=== PATIENT | male | born 1940 | race Caucasian/White ===

== ENCOUNTER 2016-05-23 10:47 | Emergency (ER) | payer MEDICARE ==
[2016-04-22 13:19] VITALS: BMI 26.2
[~2016-05-23 10:47] MED LIST: BACTRIM DS TABL1 TAB PO; BAYER CHEWABLE81 MG PO; CLEOCIN HCL150 MG PO; FLOMAX0.4 MG PO; GABAPENTIN100 MG PO; GLUCOPHAGE1000 MG PO; GLUCOPHAGE500 MG PO; HYDROCHLOROTH12.5 M1 PO; HYDROCODONE-APA1 TAB PO; IPRAT-ALBUT 0.5-3 ML UPD; KEFLEX500 MG PO; LANTUS SOL100 UNIT/1 SC; LISINOPRIL10 MG PO; MONODOX100 MG PO; MULTIPLE VITAMI1 TA1; MULTIPLE VITAMI1 TA1 PO; NEURONTIN 300300 MG PO; PLAVIX75 MG PO; PRAVACHOL20 MG PO
[2016-05-23 12:00] LABS: BASOPHILS 0.1 % (0.0-2.0); EOSINOPHILS 1.4 % (0-7); HEMATOCRIT 35.6 % (42.0-54.0); HEMOGLOBIN 11.8 g/dL (13.5-17.5); IMMATURE GRANULOCYTES 0.5 % (0-5); LYMPHOCYTES 8.2 % (15-50); MCH 30.3 pg (26.0-34.0); MCHC 33.1 g/dL (31.0-37.0); MCV 91.5 fL (80.0-100.0); MEAN PLATELET VOLUME 10.3 fL (7.4-10.4); MONOCYTES 6.8 % (2-11); RBC 3.89 10x6/uL (4.20-6.10); WBC 9.4 10x3/uL (4.8-10.8)
[2016-05-23 12:01] LABS: PLATELET COUNT 159 10x3/uL (130-400)
== END 2016-05-23 12:32 | disposition home or self-care (01) ==
LOC: D.ER 10:47
PROVIDERS: Nurse Practitioner Acute Care
DX: L03.116 Cellulitis of left lower limb (principal); I73.9 Peripheral vascular disease, unspecified; E11.9 Type 2 diabetes mellitus without complications

== ENCOUNTER 2016-05-25 11:48 | Inpatient (IN) | payer MEDICARE ==
[~2016-05-25] VITALS: Ht 177.8 cm; Wt 74.7 kg
[2016-05-25 12:08] VITALS: BP 97/58; BMI 26.4
--- NOTE | 2016-05-25 12:22 | NUR ---
ARRIVED FROM OFFICE. IV STARTED BY MELIDA ELIZONDO. 22 GA X1 ATTEMPT. MONITOR SHOWS [address] ST. WHEEZING ON INSPIRATORY AND EXPIRATORY ASHLEY LUNGS. 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
[2016-05-25 13:17] VITALS: BP 97/59
--- NOTE | 2016-05-25 13:30 | NUR ---
SCD BROUGHT TO PT AND EXPLAINED THE PURPOSE BUT PATIENT REFUSES.
[2016-05-25 14:08] LABS: BASOPHILS 0.5 % (0.0-2.0); EOSINOPHILS 2.7 % (0-7); HEMATOCRIT 34.6 % (42.0-54.0); HEMOGLOBIN 11.4 g/dL (13.5-17.5); IMMATURE GRANULOCYTES 0.7 % (0-5); MCH 30.6 pg (26.0-34.0); MCHC 32.9 g/dL (31.0-37.0); MCV 92.8 fL (80.0-100.0); MEAN PLATELET VOLUME 10.5 fL (7.4-10.4); MONOCYTES 8.1 % (2-11); PLATELET COUNT 188 10x3/uL (130-400); RBC 3.73 10x6/uL (4.20-6.10); RDW 14.3 % (11.5-14.5); WBC 8.7 10x3/uL (4.8-10.8)
--- NOTE | 2016-05-25 14:31 | NUR ---
WITHOUT CHANGES OR DISTRESS NOTED AT THIS TIME.
[2016-05-25 14:44] LABS: ALBUMIN 2.9 g/dL (3.4-5.0); ANION GAP 14.1 mmol/L (8-16); BILIRUBIN - TOTAL 0.45 mg/dL (0.2-1.3); CALCIUM 8.9 mg/dL (8.5-10.1); CARBON DIOXIDE 28.6 mmol/L (21.0-32.0); CREATININE - SERUM 1.7 mg/dL (0.6-1.3); POTASSIUM - SERUM 4.7 mmol/L (3.5-5.1); PROTEIN - SERUM 6.8 g/dL (6.4-8.2)
[2016-05-25 15:13] LABS: CKMB 0.8 U/L (0.0-3.6); CREATINE KINASE 63 UL (21-232); TROPONIN-I 0.025 ng/mL (0.000-0.060)
[2016-05-25 16:27] VITALS: BP 108/68
[2016-05-25 19:30] LABS: CKMB 1.6 U/L (0.0-3.6); CREATINE KINASE 147 UL (21-232); TROPONIN-I 0.026 ng/mL (0.000-0.060)
[2016-05-25 20:02] VITALS: BP 94/64
--- NOTE | 2016-05-25 23:15 | NUR ---
PT RECIVING CODORONE DRIP AND STARTED TO C/O NAUSEA AND " NOT FEELING RIGHT" DR BARAJAS CALLED AND NOTIFIED AND ORDERS RECIVED TO STOP DRIP AND ORDER FOR ZOFRAN 4MG IVP PRN FOR NAUSEA. HR 82 SR ON TELEMETRY AND BP 143/113 AT THIS TIME.
[2016-05-26] VITALS: BP 105/86
--- NOTE | 2016-05-26 01:30 | NUR ---
PT LAYING IN BED NO DISTRESS OBSERVED EYES CLOSED AND PT APPERS TO BE SLEEPING RESPERATIONS EVEN AND UNLABORED ON 2LNC WILL MONITOR
[2016-05-26 02:00] LABS: CKMB 0.9 U/L (0.0-3.6); CREATINE KINASE 71 UL (21-232); TROPONIN-I 0.036 ng/mL (0.000-0.060)
[2016-05-26 04:19] VITALS: BP 86/51
--- NOTE | 2016-05-26 04:19 | NUR ---
ALEC ARRIAGA NOTIFIED ME THAT PT BP LOW 72 SYSTOLIC MANUAL TAKEN AND READING 78/56 BOLUS 500 NS AND MONITORED BP Q15MIN READINGS ARE FOLLOWED 86/51 AT 0425 PT DENIES ANY LIGHT HEADEDNESS OR DIZZINESS WILL MONITOR BP AND PT
--- NOTE | 2016-05-26 05:20 | NUR ---
PT BP READING 83/52 BOLUS COMPLETED AND FLUIDS INFUSING AT A RATE OF 150ML/HR AND PT DENIES ANY DISCOMFORT WILL MONITOR
[2016-05-26 06:05] LABS: BASOPHILS 0.2 % (0.0-2.0); EOSINOPHILS 0.3 % (0-7); HEMATOCRIT 34.3 % (42.0-54.0); LYMPHOCYTES 12.5 % (15-50); MCH 29.6 pg (26.0-34.0); MCHC 32.1 g/dL (31.0-37.0); MCV 92.5 fL (80.0-100.0); MEAN PLATELET VOLUME 10.6 fL (7.4-10.4); MONOCYTES 7.9 % (2-11); NEUTROPHILS 78.1 % (40-80); PLATELET COUNT 183 10x3/uL (130-400); RBC 3.71 10x6/uL (4.20-6.10); RDW 14.3 % (11.5-14.5); WBC 8.8 10x3/uL (4.8-10.8)
[2016-05-26 06:39] LABS: BILIRUBIN - TOTAL 0.41 mg/dL (0.2-1.3); CALCIUM 8.6 mg/dL (8.5-10.1); CARBON DIOXIDE 24.5 mmol/L (21.0-32.0); PROTEIN - SERUM 6.9 g/dL (6.4-8.2)
[2016-05-26 06:42] LABS: CREATININE - SERUM 2.6 mg/dL (0.6-1.3); POTASSIUM - SERUM 5.5 mmol/L (3.5-5.1)
--- NOTE | 2016-05-26 07:30 | NUR ---
RESTING IN BED EYES CLOSED RESP UNLABORED NAD NOTED
[2016-05-26 08:07] VITALS: BP 92/63
[2016-05-26 11:36] VITALS: BP 83/43
--- NOTE | 2016-05-26 12:39 | NUR ---
RATIONALE FOR SCD'S EXPLAINED. REFUSED SCD'S
[2016-05-26 12:42] LABS: ANION GAP 17.6 mmol/L (8-16); CALCIUM 8.7 mg/dL (8.5-10.1); CARBON DIOXIDE 24.1 mmol/L (21.0-32.0); CREATININE - SERUM 3.1 mg/dL (0.6-1.3); POTASSIUM - SERUM 5.7 mmol/L (3.5-5.1)
[2016-05-26 14:20] VITALS: Ht 177.8 cm; Wt 74.7 kg
--- NOTE | 2016-05-26 15:04 | NUR ---
LAB RESULTS CALLED TO DR VERONICA RESULTS GIVEN TO HIS NURSE ANTON
[2016-05-26 15:54] VITALS: BP 97/64
--- NOTE | 2016-05-26 18:20 | NUR ---
CALLED TO PT ROOM PT SITTING IN FLOOR CT STAFF AND PT STATES PT HAD SLIPP IN FLOOR DURING TRANSFER NO INJURIES NOTED VS T97.5, R 28, P 104, B/P 109/66
--- NOTE | 2016-05-26 19:00 | NUR ---
REPORTED FALL WITH NO INJURIES TO DR VERONICA AT THIS TIME
--- NOTE | 2016-05-26 20:01 | NUR ---
RESUMED CARE OF PT, LYING IN BED RESPIRATIONS EVEN AND UNLABORED ON 2LPM VIA NC. LEFT HAND INFUSING BUMEX @ 5 AND DOBUTAMINE @ 12.9 (5MCG/KG/MIN). PLAN OF CARE DISCUSSED, CALL LIGHT IN REACH. WILL CONTINUE TO MONITOR. SEE NURSE ASSESMSENT.
[2016-05-26 20:56] VITALS: BP 129/76
--- NOTE | 2016-05-26 23:02 | NUR ---
22 GAUGE TO RIGHT FOREARM X 3 STICKS. ANTIBIOTICS INFUSING.
[2016-05-27 00:36] VITALS: BP 97/60
--- NOTE | 2016-05-27 02:20 | NUR ---
IV TO LEFT HAND REMOVED BY WHEELCHAIR, TIP INTACT. SWITCHED DRIPS OVER TO RIGHT FOREARM. WILL CONTINUE TO MONITOR.
--- NOTE | 2016-05-27 04:01 | NUR ---
FARM CROPS TEACHER AT BEDSIDE TO OBTAIN VITALS, CALL LIGHT IN REACH. WILL CONTINUE TO MONITOR.
[2016-05-27 04:57] VITALS: BP 98/40
[2016-05-27 05:02] LABS: BASOPHILS 0.2 % (0.0-2.0); HEMATOCRIT 35.3 % (42.0-54.0); HEMOGLOBIN 11.5 g/dL (13.5-17.5); IMMATURE GRANULOCYTES 1.1 % (0-5); LYMPHOCYTES 13.4 % (15-50); MCHC 32.6 g/dL (31.0-37.0); MCV 92.2 fL (80.0-100.0); MEAN PLATELET VOLUME 10.7 fL (7.4-10.4); MONOCYTES 8.6 % (2-11); NEUTROPHILS 75.7 % (40-80); PLATELET COUNT 181 10x3/uL (130-400); RBC 3.83 10x6/uL (4.20-6.10); RDW 14.3 % (11.5-14.5); WBC 10.3 10x3/uL (4.8-10.8)
[2016-05-27 05:44] LABS: ALBUMIN 3.2 g/dL (3.4-5.0); BILIRUBIN - TOTAL 0.47 mg/dL (0.2-1.3); CALCIUM 8.7 mg/dL (8.5-10.1); CARBON DIOXIDE 26.4 mmol/L (21.0-32.0); CREATININE - SERUM 2.8 mg/dL (0.6-1.3); PROTEIN - SERUM 7.3 g/dL (6.4-8.2)
[2016-05-27 05:45] LABS: ANION GAP 15.2 mmol/L (8-16); POTASSIUM - SERUM 4.6 mmol/L (3.5-5.1)
[2016-05-27 06:34] LABS: CREATININE - URINE 50.6 mg/dL (30-125); PRO/CRE RATIO URINE 0.3 mg/g; PROTEIN - URINE 16.2 mg/dL (0.0-11.9)
--- NOTE | 2016-05-27 06:40 | NUR ---
URINE SAMPLES OBTAINED, NO CHANGES FROM PREVIOUS ASSESSMENT.
--- NOTE | 2016-05-27 07:15 | NUR ---
RESTING QUIETLY DRINKING COFFEE NAD NOTED DENIES ANY NEEDS OR DISCOMFORT
[2016-05-27 08:00] VITALS: BP 97/59
[2016-05-27 11:54] VITALS: BP 109/73
[2016-05-27 12:26] LABS: APPEARANCE CLEAR (CLEAR); BACTERIA FEW /hpf (NONE SEEN); BILIRUBIN NEGATIVE (NEGATIVE); COLOR YELLOW (YELLOW); EPITHELIAL CELLS 0-5 /hpf (0-5); GLUCOSE NEGATIVE (NEGATIVE); HYALINE CAST 0-5 /lpf (NONE SEEN); KETONE NEGATIVE (NEGATIVE); LEUKOCYTE ESTERASE 2+ (NEGATIVE); MUCUS <1+ /lpf (NONE SEEN); NITRITE NEGATIVE (NEGATIVE); PROTEIN NEGATIVE (NEGATIVE); SPECIFIC GRAVITY 1.015 (1.005-1.020); UROBILINOGEN NORMAL (NORMAL)
[2016-05-27 12:27] LABS: WAXY CAST RARE /lpf (NONE SEEN)
[2016-05-27 15:49] VITALS: BP 108/59
--- NOTE | 2016-05-27 19:00 | NUR ---
RECEIVED REPORT AND ASSUMED PT CARE FROM DAY SHIFT NURSE @ THIS TIME.
[2016-05-27 22:37] VITALS: BP 129/72
[2016-05-28 01:38] VITALS: BP 94/44
--- NOTE | 2016-05-28 01:45 | NUR ---
PT RESTING SOUNDLY WITHOUT C/O OR DISTRESS NOTED. CALL LIGHT WITHIN REACH. WILL CONT TO MONITOR.
[2016-05-28 05:23] LABS: BASOPHILS 0.3 % (0.0-2.0); EOSINOPHILS 2.3 % (0-7); HEMATOCRIT 35.6 % (42.0-54.0); HEMOGLOBIN 11.4 g/dL (13.5-17.5); IMMATURE GRANULOCYTES 1.5 % (0-5); LYMPHOCYTES 11.1 % (15-50); MCH 29.8 pg (26.0-34.0); MCV 93.2 fL (80.0-100.0); MEAN PLATELET VOLUME 10.7 fL (7.4-10.4); NEUTROPHILS 74.8 % (40-80); PLATELET COUNT 197 10x3/uL (130-400); RBC 3.82 10x6/uL (4.20-6.10); RDW 14.4 % (11.5-14.5); WBC 9.3 10x3/uL (4.8-10.8)
--- NOTE | 2016-05-28 05:30 | NUR ---
PT RIGHT FOREARM IV INFILTRATED. REMOVED WITH CATH INTACT. DRESSIGN APPLIED. RESITED TO RIGHT FOREARM C/ 20 GA ANGIOCATH X2 STICKS. PT JENNIFFER WELL. WILL CONT TO MONITOR.
[2016-05-28 05:41] LABS: ALBUMIN 3.2 g/dL (3.4-5.0); BILIRUBIN - DIRECT 0.15 mg/dL (0.00-0.30); BILIRUBIN - TOTAL 0.6 mg/dL (0.2-1.3); CALCIUM 9.3 mg/dL (8.5-10.1); CARBON DIOXIDE 32.8 mmol/L (21.0-32.0); CREATININE - SERUM 2.5 mg/dL (0.6-1.3); PROTEIN - SERUM 7.5 g/dL (6.4-8.2)
[2016-05-28 05:42] LABS: ANION GAP 10.1 mmol/L (8-16); POTASSIUM - SERUM 3.9 mmol/L (3.5-5.1)
[2016-05-28 05:55] VITALS: BP 112/54
[2016-05-28 07:49] VITALS: BP 110/59
--- NOTE | 2016-05-28 09:42 | NUR ---
RESP UL ON 02 2L NC. IV PATENT. TELEMETRY SR. WILL CONT. PLAN OF CARE.
[2016-05-28 11:47] VITALS: BP 108/63
[2016-05-28 15:54] VITALS: BP 110/58
--- NOTE | 2016-05-28 20:18 | NUR ---
BEDSIDE REPORT COMPLETED LINENS CHANGED ON PT BED PT SITTING UP IN WHEELCHAIR AT BEDSIDE NO DISTRESS OBSERVED PT ON 2LNC AND TELEMETRY READING SR IV FLUIDS INFUSING ORDERED. CALL GAGANDEEP ZUÑIGA SRX2 BED LOW AND LOCKED WILL MONITOR
[2016-05-28 20:37] VITALS: BP 108/62
--- NOTE | 2016-05-28 22:27 | NUR ---
PT ASSESSMENT COMPLETED NO DISTRESS OBSERVED CALL LIGHTIN REACH SRX2 BED LOW AND LOCKED. RESPERATIONS EVEN AND UNLABORED ON 2LNC WILL MONITOR
[2016-05-29 00:17] VITALS: BP 105/54
[2016-05-29 04:29] VITALS: BP 104/48
[2016-05-29 05:07] LABS: BASOPHILS 0.4 % (0.0-2.0); EOSINOPHILS 3.5 % (0-7); HEMATOCRIT 37.2 % (42.0-54.0); IMMATURE GRANULOCYTES 1.1 % (0-5); LYMPHOCYTES 18.9 % (15-50); MCH 29.8 pg (26.0-34.0); MCHC 32.3 g/dL (31.0-37.0); MCV 92.3 fL (80.0-100.0); MONOCYTES 9.8 % (2-11); NEUTROPHILS 66.3 % (40-80); PLATELET COUNT 212 10x3/uL (130-400); RBC 4.03 10x6/uL (4.20-6.10); RDW 14.4 % (11.5-14.5); WBC 8.1 10x3/uL (4.8-10.8)
[2016-05-29 05:32] LABS: ALBUMIN 3.3 g/dL (3.4-5.0); BILIRUBIN - TOTAL 0.8 mg/dL (0.2-1.3); CALCIUM 9.8 mg/dL (8.5-10.1); CARBON DIOXIDE 35.4 mmol/L (21.0-32.0); CREATININE - SERUM 1.9 mg/dL (0.6-1.3); POTASSIUM - SERUM 3.4 mmol/L (3.5-5.1); PROTEIN - SERUM 7.8 g/dL (6.4-8.2)
[2016-05-29 07:55] VITALS: BP 90/54
--- NOTE | 2016-05-29 09:33 | NUR ---
RESP UL ON 2L NC. IV PATENT. CALL LIGHT IN REACH. WILL CONT. PLAN OF CARE.
[2016-05-29 12:00] VITALS: BP 107/64
[2016-05-29 16:00] VITALS: BP 97/57
--- NOTE | 2016-05-29 19:16 | NUR ---
BEDSIDE SHIFT REPORT COMPLETED PT LAYING IN BED EYES CLOSED PT APPERS TO BE SLEEPING AT THIS TIME CALL LIGHT IN REACH SRX2 BED LOW AND LOCKED IVP SALINE LOCKED AND NO DISTRESS OBSERVED WILL MONITOR
[2016-05-29 20:00] VITALS: BP 109/70
--- NOTE | 2016-05-29 21:57 | NUR ---
PT UP IN WHEELCHAIR AROUND UNIT NO DISTRESS OBSERVED WILL MONITOR
[2016-05-30] VITALS: BP 100/61
[2016-05-30 04:00] VITALS: BP 102/64
[2016-05-30 05:40] LABS: BASOPHILS 0.3 % (0.0-2.0); EOSINOPHILS 4.3 % (0-7); HEMATOCRIT 39.9 % (42.0-54.0); HEMOGLOBIN 12.7 g/dL (13.5-17.5); IMMATURE GRANULOCYTES 1.6 % (0-5); LYMPHOCYTES 22.9 % (15-50); MCH 29.8 pg (26.0-34.0); MCHC 31.8 g/dL (31.0-37.0); MCV 93.7 fL (80.0-100.0); MEAN PLATELET VOLUME 9.9 fL (7.4-10.4); MONOCYTES 11.1 % (2-11); NEUTROPHILS 59.8 % (40-80); PLATELET COUNT 238 10x3/uL (130-400); RBC 4.26 10x6/uL (4.20-6.10); RDW 14.3 % (11.5-14.5); WBC 7.5 10x3/uL (4.8-10.8)
[2016-05-30 06:45] LABS: ALBUMIN 3.2 g/dL (3.4-5.0); ANION GAP 11.3 mmol/L (8-16); BILIRUBIN - TOTAL 0.6 mg/dL (0.2-1.3); CALCIUM 9.3 mg/dL (8.5-10.1); CARBON DIOXIDE 38.6 mmol/L (21.0-32.0); POTASSIUM - SERUM 3.9 mmol/L (3.5-5.1)
--- NOTE | 2016-05-30 07:10 | NUR ---
UP IN W/C DENIES ANY NEEDS OR DISCOMFORT
[2016-05-30 07:55] LABS: ERYTHROCYTE SEDIMENTATION RATE 44 mm/hr (0-20)
[2016-05-30 08:00] VITALS: BP 95/56
--- NOTE | 2016-05-30 11:43 | NUR ---
Rehab Note- Prescreen Order received. The patient has [employer] & requires a PreAuth prior to IRF stay. Will need a PT & OT eval prior to PreAuth process started. Thank you for this referral! Carol Ann Pastrana RN Clinical Liaison, Rehab Care/[facility]
[2016-05-30 12:00] VITALS: BP 119/62
--- NOTE | 2016-05-30 14:32 | NUR ---
Patient Name: JADYN SIMMONS Admission Status: Elective Accout number: [id number] Admission Date: 05-26-2016 : 1940 Admission Diagnosis:SHORTNESS OF BREATH Attending: SHAUNA Current LOS: 4 Anticipated DC Date: Planned Disposition: Home with Home Health Primary Insurance: [facility] PLANNED EXTERNAL PROVIDER: [facility] Discharge Planning Comments: * Is the patient Alert and Oriented? Yes 0 * How many steps to enter\exit or inside your home? NONE 0 * PCP DR. VERONICA 0 * Pharmacy [facility] 0 * Preadmission Environment Home Alone 0 * ADLs Independent 0 * Equipment Cane Walker Wheelchair 0 * Other Equipment NO MEDICAL EQUIPMENT PROVIDER PREFERENCE 0 * List name and contact numbers for known caregivers / representatives who currently or will assist patient after discharge: RASHID AL, BROTHER, 0 * Community resources currently utilized Home Health 0 * Please name any agencies selected above. [facility] 0 * Additional services required to return to the preadmission environment? No 0 * Can the patient safely return to the preadmission environment? Yes 0 * Has this patient been hospitalized within the prior 30 days at any hospital? Yes 0 CM MET WITH PT AND BROTHER IN ROOM TO DISCUSS DISCHARGE PLANNING AND NEEDS. PT REPORTS LIVING AT HOME INDEPENDENTLY AND ALONE. PT HAS A CANE, WALKER AND WHEELCHAIR WITH NO MEDICAL EQUIPMENT PROVIDER PREFERENCE. PT HAS HOME HEALTH WITH [facility]. CM DISCUSSED AVAILABILITY OF HOME HEALTH, REHAB SERVICES AND MEDICAL EQUIPMENT. PT PLANS TO RETURN HOME AND WANTS HOME HEALTH RESUMED AT DISCHARGE. PT REPORTS HIS BROTHER WILL PICK HIM UP FOR DISCHARGE HOME. IMPORTANT MESSAGE FROM MEDICARE PROVIDED AND EXPLAINED. FOR DISCHARGE, NOTIFY [facility] OF DISCHARGE AT [phone], FAX DISCHARGE INFORMATION TO [facility] AT [phone]. Production Machine Shop Supervisor: Titus Banda
[2016-05-30 16:00] VITALS: BP 95/58
[2016-05-30 19:00] VITALS: BP 96/62
[2016-05-31] VITALS: BP 83/44
--- NOTE | 2016-05-31 01:12 | NUR ---
SLEEPING COMFORTABLE, NO S&S OF ACUTE DISTRESS. RESPIRATIONS UNLABORED. TELEMETRY READING 77 BPM IN NSR. BED LOW AND LOCKED, CALL LIGHT IN REACH, WILL CONTINUE TO MONITOR.
--- NOTE | 2016-05-31 01:17 | NUR ---
RECIEVING 2L NC FOR O2 THERAPY.
--- NOTE | 2016-05-31 03:04 | NUR ---
RESTING WITH EYES CLOSED, RESPERATIONS EVEN, NO S/S DISTRESS NOTED.
[2016-05-31 04:00] VITALS: BP 99/66
[2016-05-31 05:16] LABS: BASOPHILS 0.2 % (0.0-2.0); EOSINOPHILS 0.5 % (0-7); HEMATOCRIT 36.3 % (42.0-54.0); HEMOGLOBIN 11.7 g/dL (13.5-17.5); IMMATURE GRANULOCYTES 0.7 % (0-5); LYMPHOCYTES 12.3 % (15-50); MCH 29.8 pg (26.0-34.0); MCHC 32.2 g/dL (31.0-37.0); MCV 92.6 fL (80.0-100.0); MEAN PLATELET VOLUME 10.1 fL (7.4-10.4); MONOCYTES 8.9 % (2-11); NEUTROPHILS 77.4 % (40-80); PLATELET COUNT 256 10x3/uL (130-400); RBC 3.92 10x6/uL (4.20-6.10); RDW 13.9 % (11.5-14.5); WBC 11.8 10x3/uL (4.8-10.8)
[2016-05-31 05:28] LABS: ALBUMIN 3.2 g/dL (3.4-5.0); ANION GAP 11.7 mmol/L (8-16); BILIRUBIN - TOTAL 0.47 mg/dL (0.2-1.3); CALCIUM 9.1 mg/dL (8.5-10.1); POTASSIUM - SERUM 3.7 mmol/L (3.5-5.1); PROTEIN - SERUM 7.1 g/dL (6.4-8.2)
--- NOTE | 2016-05-31 07:08 | NUR ---
0645-SITTING UP IN THE BED WITH NO NEEDS VOICED. ON 2L PER NC. ON HEART MONITOR SHOWING SR W BBB, HR 74. BILATERAL RIGHT AND LEFT FA SALINE LOCKS. OLD RIGHT BKA SEEN. WILL CONTINUE TO MONITOR. BILATERAL LUNGS SOUNDS CLEAR BUT DIMINISHED.
[2016-05-31 07:26] LABS: HEPATITIS C ANTIBODY <0.1 (0.0-0.9)
[2016-05-31 08:55] VITALS: BP 102/56
[2016-05-31 10:20] LABS: ANA REFLEX - DIRECT Negative (Negative)
--- NOTE | 2016-05-31 10:54 | NUR ---
Rehab Note- OT Eval completed. Will submit to [facility] for PreAuth for possible IRF stay. Will continue to follow. Carol Ann Pastrana RN Clinical Liaison, Rehab Care[facility]
[2016-05-31 12:18] VITALS: BP 85/58
--- NOTE | 2016-05-31 12:38 | NUR ---
Nutrition follow-up: Diet: Renal ADA PO intake 100% of most meals Labs reviewed wt: 172# +BM PO intake good at this time. RDN following.
--- NOTE | 2016-05-31 14:18 | NUR ---
All information submitted to [facility] today for IRF authorization Ref# [id number] Nora Quiroga RN Clinical Liaison, Rehab
--- NOTE | 2016-05-31 14:23 | NUR ---
PER DR MCCOY, PATIENT CAN BE DISCHARGED. FOLLOW UP WITH DR ANGULO IN 3-4 WEEKS.
[2016-05-31 16:08] VITALS: BP 112/58
--- NOTE | 2016-05-31 17:07 | NUR ---
Patient Name: JADYN SIMMONS Encounter No: [id number] : 1940 Primary Insurance: [employer] Anticipated DC Date: 05-31-2016 Planned Disposition: Home with Home Health External Planned Provider: [facility] DCP follow-up note: CM RECEIVED DISCHARGE ORDER, CALLED AND SPOKE TO ANTHONY STEWART [place], , WHO PUT PT BACK ON HOME HEALTH SCHEDULE FOR RESUMPTION OF CARE TOMORROW. CM FAXED DISCHARGE INFORMATION TO [facility] AT [phone]. DISCHARGE MEDICATIONS AND INSTRUCTIONS WERE NOT YET AVAILABLE; CM TO FAX THEM TOMORROW UPON CM RETURN. Titus Banda, CASE MANAGMENT
--- NOTE | 2016-05-31 19:40 | NUR ---
ASSESSMENT COMPLETE, A&O, SITTING UP IN BED. RESPERATIONS EVEN ON O2 AT 2 LITER. BILATERAL FOREARM IVS SL. RIGHT BKA WITH PROSTESIS NOTED. PT DENIES PAIN OR NEEDS, BED LOW, CL IN REACH.
[2016-05-31 21:18] VITALS: BP 104/67
[2016-06-01 01:12] VITALS: BP 121/50
--- NOTE | 2016-06-01 01:46 | NUR ---
RESTING QUIETLY EYES CLOSED RESP UNLABORED NAD
--- NOTE | 2016-06-01 02:38 | NUR ---
RESTING WITH EYES CLOSED, RESPERATIONS EVEN, NO S/S DISTRESS NOTED.
[2016-06-01 05:21] VITALS: BP 104/58
[2016-06-01 08:21] VITALS: BP 115/59
--- NOTE | 2016-06-01 09:15 | NUR ---
TELEMETRY SR. UP IN W/C [facility]. WILL CONT. PLAN OF CARE.
[2016-06-01 12:05] VITALS: BP 117/72
[2016-06-01] MEDS ORDERED: MEDROL DOSE PACK4 MG PO (13:44)
[2016-06-01] MEDS ORDERED: PULMICORT0.5 MG/21 UPD (13:44)
[2016-06-01] MEDS ORDERED: BROVANA15 MCG/2 M INH (13:46)
[2016-06-01] MEDS ORDERED: LOPRESSOR25 MG PO (13:46)
[2016-06-01] MEDS ORDERED: BUMEX 1 MG TAB1 MG PO (15:07)
--- NOTE | 2016-06-01 15:22 | NUR ---
IV AND TELEMETRY DCD. DC PLANS GIVEN. UNDERSTANDING VOICED. ESCORTED TO CAR BY W/C.
[2016-06-01 16:14] LABS: ANCA - ANTIMYELOPEROXIDASE <9.0 U/mL (0.0-9.0); ANCA - ANTIPROTEINASE 3 <3.5 U/mL (0.0-3.5); ANCA - ATYPICAL <1:20 titer (Neg:<1:20); ANCA - CYTOPLASMIC <1:20 titer (Neg:<1:20); ANCA - PERINUCLEAR <1:20 titer (Neg:<1:20)
--- NOTE | 2016-06-01 16:57 | NUR ---
Patient Name: JADYN SIMMONS Encounter No: [id number] : 1940 Primary Insurance: [employer] Anticipated DC Date: 05-31-2016 Planned Disposition: Home with Home Health External Planned Provider: [facility] DCP follow-up note: CM RECEIVED DISCHARGE ORDER, CALLED AND SPOKE TO PAUL, , WHO PUT PT BACK ON HOME HEALTH SCHEDULE FOR RESUMPTION OF CARE TOMORROW. CM FAXED DISCHARGE INFORMATION TO [facility] AT [phone]. Titus Banda, CASE MANAGMENT
--- NOTE | 2016-06-03 09:55 | NUR ---
Recieved a call from [facility] saying if patient had discharged home the request for IRF authorization would be deleted. Nita Gasca the CM has been made aware. Nora Quiroga RN Clinical Liaison, Rehab
== END 2016-06-01 15:23 | disposition home health service (06) | DRG 291 ==
LOC: OBSVTIME 11:48 → D.M2 11:48
PROVIDERS: Internal Medicine; Internal Medicine Pulmonary Disease; ADMIT Family Medicine
DX: I13.0 Hypertensive heart and chronic kidney disease with heart failure and stage 1 through stage 4 chronic kidney disease, or unspecified chronic kidney disease (principal); I50.23 Acute on chronic systolic (congestive) heart failure; J96.02 Acute respiratory failure with hypercapnia; J96.01 Acute respiratory failure with hypoxia; J18.9 Pneumonia, unspecified organism; N17.0 Acute kidney failure with tubular necrosis; J44.0 Chronic obstructive pulmonary disease with (acute) lower respiratory infection; J44.1 Chronic obstructive pulmonary disease with (acute) exacerbation; I47.1 Supraventricular tachycardia; L03.116 Cellulitis of left lower limb; N18.3 Chronic kidney disease, stage 3 (moderate); N40.0 Benign prostatic hyperplasia without lower urinary tract symptoms; R74.8 Abnormal levels of other serum enzymes; I48.91 Unspecified atrial fibrillation; I73.9 Peripheral vascular disease, unspecified; I27.2 Other secondary pulmonary hypertension; I25.10 Atherosclerotic heart disease of native coronary artery without angina pectoris; I25.5 Ischemic cardiomyopathy; E11.22 Type 2 diabetes mellitus with diabetic chronic kidney disease; E11.40 Type 2 diabetes mellitus with diabetic neuropathy, unspecified; E87.6 Hypokalemia; E87.5 Hyperkalemia; Z89.611 Acquired absence of right leg above knee; Z95.5 Presence of coronary angioplasty implant and graft; Z87.891 Personal history of nicotine dependence

== ENCOUNTER → 2016-06-06 18:33 | Outpatient (CLI) | payer MEDICARE ==
[2016-05-26 14:20] VITALS: BMI 27.1
[~2016-06-06 18:33] MED LIST changes: +BROVANA15 MCG/2 M INH; +BUMEX 1 MG TAB1 MG PO; +DOXYCYCLINE HY100 M2 PO; +LOPRESSOR25 MG PO; +MEDROL DOSE PACK4 MG PO; +PULMICORT0.5 MG/21 UPD
== END | disposition home or self-care (01) ==
LOC: D.LAB 18:33
DX: I50.9 Heart failure, unspecified (principal)

== ENCOUNTER → 2016-06-16 19:25 | Outpatient (CLI) | payer MEDICARE ==
[2016-05-26 14:20] VITALS: BMI 27.1
[~2016-06-16 19:25] MED LIST changes: +COREG 3.1253.125 MG PO; +ELIQUIS2.5 MG PO; +HYDROCODON-ACE1 EAC7 PO; +LANOXIN125 MCG PO; +PREDNISONE10 MG PO
== END | disposition home or self-care (01) ==
LOC: D.LABREF 19:25
DX: J20.9 Acute bronchitis, unspecified (principal)

== ENCOUNTER → 2016-08-01 21:16 | Outpatient (CLI) | payer MEDICARE ==
[2016-05-26 14:20] VITALS: BMI 27.1
== END | disposition home or self-care (01) ==
LOC: D.LABREF 21:16
DX: L03.116 Cellulitis of left lower limb (principal)

== ENCOUNTER 2016-08-02 12:16 | Inpatient (IN) | payer MEDICARE ==
[2016-08-02] VITALS (12 sets, daily range): BP systolic 98–115; BP diastolic 56–79; BMI 26.4
[~2016-08-02] VITALS: Ht 177.8 cm; Wt 81.8 kg
--- NOTE | ~2016-08-02 | HEMODYNAMI ---
PATIENT:JADYN SIMMONS MEDICAL RECORD: [id number] : 44 [id number] ADMISSION DATE: 08/02/16 Generatedon:08/02/201617:35 Patient name: JADYN SIMMONS Patient #: [id number] SSN: DO B: 1940 Date of study: 08/02/2016 Page: Of Hemodynamic Procedure Report Patient Data Patient Demographics Procedure consent was obtained First Name: JADYN Gender: Male Last Name: IRIS : 1940 Middle Initial: RONALD Age: 76 year(s) Patient #: [id number] Race: Unknown Additional ID: [id number] Contact details [address]: [address] [place] [address] State: [place] City: [place] Zip code: [address] Past Medical History Allergies: No known allergies Admission Admission Data Admission Date: 08/02/2016 Admission Time: 12:16 Room #: D.2129 Weight (lbs.): 184 Weight (kg.): 83.46 Procedure Procedure Types Cath Procedure Peripheral Cath Diagnostic Procedure Cath Peripheral Abd/Extremity Extremities Bilat Lower Extremity Procedure Description Procedure Date Procedure Date: 08/02/2016 Procedure Start Time: 16:46 Procedure Staff Name Function Irwin Perla MD Performing Physician Slick Jimenez RT Scrub Manda Smith RN Nurse Abiola Owen RN Nurse Doreen Vásquez RT Elementary Teacher Doreen Vásquez RT Monitor Procedure Data Cath Procedure Fluoroscopy Diagnostic fluoroscopy Total fluoroscopy Time: 11 time: 11 min min Diagnostic fluoroscopy Total fluoroscopy dose: 336 dose: 336 mGy mGy Contrast Material Contrast Material Type Amount (ml) Isovue 300 55 Entry Location Entry Primary Successful Side Size Upsize Upsize Entry Closure Succes sful Closure Location (Fr) 1 (Fr) 2 (Fr) Remarks Device Remarks Femoral Right 5 Fr artery Diagnostic catheters Device Type Used For End Catheter Placement Merit ULTRA BOLUS FLUSH 5Fr 65CM catheter Procedure Medications Medication Administration Route Dosage Versed I.V. 1 mg Fentanyl I.V. 50 mcg Versed I.V. 1 mg Fentanyl I.V. 50 mcg Heparin Bolus I.V. 2000 units Fentanyl I.V. 50 mcg Fentanyl I.V. 25 mcg TPA I.V. drip 1 mg/hr Heparin Drip I.V. drip 500 units/hr (82523mkcym/250 D5W) Hemodynamics Rest Heart Rate: 128 (bpm) Snapshots Pre Cath Intra NCS Post Cath Vital Signs Time Heart Resp SPO2 NIBP (mmHg) Rhythm Pain Sedation Rate (ipm) (%) Status Level (bpm) 16:24:08 [address] 0 (11) 10(A) , No pain 16:24:39 122 20 96 124/90(103) ST 0 (11) 10(A) , No pain 16:28:51 126 21 91 126/91(105) ST 0 (11) 10(A) , No pain 16:32:57 125 22 96 121/87(98) ST 0 (11) 10(A) , No pain 16:37:01 124 20 93 119/89(96) ST 0 (11) 10(A) , No pain 16:41:04 124 20 91 125/88(99) ST 0 (11) 10(A) , No pain 16:45:10 126 22 91 124/87(99) ST 0 (11) 10(A) , No pain 16:49:14 123 26 97 112/81(93) ST 0 (11) 9(A) , No pain 16:53:16 123 28 84 113/79(97) ST 0 (11) 9(A) , No pain 16:57:19 120 22 96 108/77(89) ST 0 (11) 9(A) , No pain 17:01:21 120 23 97 110/75(94) ST 0 (11) 9(A) , No pain 17:05:23 122 22 98 102/74(83) ST 0 (11) 9(A) , No pain 17:09:22 121 24 98 112/79(88) ST 0 (11) 9(A) , No pain 17:13:18 123 26 98 91/79(83) ST 0 (11) 9(A) , No pain 17:17:13 122 22 97 112/79(92) ST 0 (11) 9(A) , No pain 17:21:13 120 22 99 105/73(88) ST 0 (11) 10(A) , No pain 17:25:15 122 24 98 112/78(88) ST 0 (11) 10(A) , No pain 17:29:16 121 26 95 114/78(92) ST 0 (11) 10(A) , No pain 17:33:18 123 24 94 116/80(96) ST 0 (11) 10(A) , No pain Medications Time Medication Route Dose Verified Delivered Reason Notes Eff ectiveness by by 16:41:51 Versed I.V. 1 mg Manda Manda for Sarah Sarah sedation RN RN 16:42:03 Fentanyl I.V. 50 mcg Manda Manda for Sarah Sarah sedation RN RN 16:47:13 Versed I.V. 1 mg Manda Manda for Sarah Sarah sedation RN RN 16:47:19 Fentanyl I.V. 50 mcg Manda Manda for Sarah Sarah sedation RN RN 17:04:55 Heparin Bolus I.V. 2000 Manda Manda Per units Sarah Smith physician RN RN 17:12:41 Fentanyl I.V. 50 mcg Manda Manda for Sarah Sarah sedation RN RN 17:23:21 Fentanyl I.V. 25 mcg Manda Manda for Sarah Sarah sedation RN RN 17:33:16 TPA I.V. 1mg/hr Manda Manda Per drip Sarah Smith physician RN RN 17:33:57 Heparin Drip I.V. 500 Manda Manda Per (33639ohyqy/250 drip units/hr Sarah Smith physician D5W) RN pole shaver helper Log Time Note 16:08:14 Patient Weight : 184 kg 16:08:59 Use device set IR Diagnostic 16:21:36 TUBING, CONTRAST INJCTN HI PRES opened to sterile field. 16:21:37 Cook BENTSON 145cm guide wire opened to sterile field. 16:21:39 Micropuncture VSI 4FR kit opened to sterile field. 16:21:40 St Mango 5FR Sheath opened to sterile field. 16:21:41 Sterile Angiographic Pack opened to sterile field. 16:21:44 Bag Decanter opened to sterile field. 16:21:45 Acist Manifold opened to sterile field. 16:21:46 Acist Hand Control opened to sterile field. 16:21:47 Acist Syringe opened to sterile field. 16::53 Time tracking: Call back 16::59 Plan of Care:Hemodynamics will remain stable., Cardiac rhythm will remain stable., Comfort level will be maintained., Respiratory function will remain adequate., Patient/ family verbilizes understanding of procedure., Procedure tolerated without complication., Recovers from procedure without complications.. 16:22:06 Patient received from [employer]ylogenics to Alert and oriented. Tansferred to table in Supine position. 16:22:08 Correct patient and procedure confirmed by team. 16:22:11 Signed procedure consent form obtained from patient. 16:22:16 ECG and BP/O2 sat monitors applied to patient. 16:22:20 Vital chart was started 16:22:33 Baseline sample Acquired. 16:22:34 Full Disclosure recording started 16:22:35 - 16:22:48 Pre-procedure instructions explained to patient. 16::51 Pre-op teaching completed and patient verbalized understanding. 16::54 Family unavailable. 16::59 Patient NPO since Breakfast. 16:23:03 Is patient on blood thinner?Yes 16:23:07 Patient diabetic? Yes. 16:23:11 If diabetic: On Metformin? No 16:23:13 - 16:23:15 ----Pre-sedation anethsthesia assessment.---- 16:23:19 Previous problem with sedation/anesthesia? No ? 16:23:43 Snore? Yes 16:24:15 Sleep apnea? No 16:24:32 Deviated septum? No 16:24:35 Opens mouth fully? Yes 16:24:39 Sticks out tongue? Yes 16:24:49 Airway obstruction? Yes CHF, COPD 16:25:06 Pre procedure: left dorsailis pedis pulse 0-Absent 16:25:11 Pre procedure: left posterior tibial pulse Doppler 16:25:37 IV patent on arrival in right antecubital with 0.9% NaCl at [facility]. 16:25:46 Right groin area was prepped with chlora-prep and draped in sterile fashion 16:41:51 Versed 1 mg I.V. was administered by Manda Smith RN; for sedation; 16:42:03 Fentanyl 50 mcg I.V. was administered by Manda Smith RN; for sedation; 16:42:50 Physician arrived 16:46:09 --------ALL STOP TIME OUT------ 16:46:10 Final Timeout: patient, procedure, and site verified with staff and physician. All members of the team are in agreement. 16:46:24 Physical assessment completed. ASA score P 3 - A patient with severe systemic disease as per Irwin Perla MD. 16:46:29 Sedation plan: IV Moderate Sedation Versed, Fentanyl 16:46:34 Procedure started. 16:46:40 Local anesthetic to right femoral artery with Lidocaine 1% by Irwin Perla MD.INITIAL ACCESS ONLY 16:46:49 Arterial access obtained using ultrasound guidance. 16:47:04 A Merit ULTRA BOLUS FLUSH 5Fr 65CM catheter was advanced over the wire and used for . 16:47:13 Versed 1 mg I.V. was administered by Manda Smith RN; for sedation; 16:47:18 A 5 Fr sheath was inserted into the Right Femoral artery 16:47:19 Fentanyl 50 mcg I.V. was administered by Manda Smith RN; for sedation; 16:53:[address] 260 .035 glide wire opened to sterile field. 16:57:07 Cook CASTRO 180 guide wire opened to sterile field. 16:57:33 Terumo 6Fr [place] Destination Sheath opened to sterile field. 16:58:47 CXI SUPPORT .035 135 CM STR catheter opened to sterile field. 17:04:55 Heparin Bolus 2000 units I.V. was administered by Manda Smith RN; Per physician; 17:05:57 Terumo ANGLE 260cm glide wire opened to sterile field. 17:12:41 Fentanyl 50 mcg I.V. was administered by Manda Smith RN; for sedation; 17:23:21 Fentanyl 25 mcg I.V. was administered by Manda Smith RN; for sedation; 17:33:16 TPA 1mg/hr I.V. drip was administered by Manda Smith RN; Per physician; 17:33:49 Procedure ended.(Physican Out) 17:33:55 Fluoroscopy time 11.00 minutes. 17:33:57 Heparin Drip (37545brrst/250 D5W) 500 units/hr I.V. drip was administered by Manda Smith RN; Per physician; 17:34:16 Fluoroscopy dose: 336 mGy 17:34:16 Flurop Dose total: 336 17:34:21 Contrast amount:Isovue 300 55ml. 17:34:22 Sharps counted by scrub and verified by R.N. 17:34:24 Procedure and supply charges have been captured, reviewed, submitted an d are correct. 17:34:42 Post Procedure Pulses reassessed and unchanged 17:35:00 Vital chart was stopped Device Usage Item Name Manufacture Quantity Catalog Number Hospital Part Current Min imal Lot# / Charge Number Stock Stock Serial# Code TUBING, Merit 1 [id number] [id number] 5 CONTRAST Medical INJCTN HI PRES [facility] 1 [id number] [id number] 5 [id number] 145cm guide wire Micropuncture VSI VASCULAR 1 [id number] 192321 542208 [address] Mango [address] St Mango 1 [id number] 267599 953027 5 [id number] Sheath Sterile Cardinal 1 [id number] 951168 633100 5 Angiographic Health Pack Bag Decanter Microtek 1 2001S 696580 44751 760413 5 Medical Inc. Acist Acist 1 66065 409630 049335 791332 5 Manifold Medical Systems Inc Acist Hand Acist 1 45057 752807 070208 535713 5 Control Medical Systems Inc Acist Syringe Acist 1 29237 013130 553110 579792 20 Medical Systems Inc Merit ULTRA Merit 1 [id number] 137441 086544 5 BOLUS FLUSH Medical 5Fr 65CM catheter [facility] 1 [id number] 326572 200533 5 [id number] [address]NER 260 .035 glide wire [facility] 1 [id number] 969013 712162 5 [id number] 180 guide wire Terumo 6Fr Terumo 1 [id number] 531254 22307 870919 5 [place] Destination Sheath CXI SUPPORT [facility] 1 [id number] 972618 618725 5 0651518 .035 135 CM STR catheter Terumo ANGLE Terumo 1 [id number] 474723 948262 279018 5 260cm glide wire Signature Audit [place] Stage Time Signature Unsigned Intra-Procedure 08/02/2016 Doreen Vásquez 5:34:57 PM RT(R) Signatures Monitor : Doreen Vásquez RT Signature : Date : Time : [facility] [address] [place] [address]
--- NOTE | ~2016-08-02 | HEMODYNAMI ---
PATIENT:JADYN SIMMONS MEDICAL RECORD: [id number] : 44 LOCATION:[place] [address] ADMISSION DATE: 08/02/16 Generatedon:08/03/201615:37 Patient name: JADYN SIMMONS Patient #: [id number] SSN: DO B: 1940 Date of study: 08/03/2016 Page: Of Hemodynamic Procedure Report Patient Data Patient Demographics Procedure consent was obtained First Name: JADYN Gender: Male Last Name: IRIS : 1940 [facility] Initial: RONALD Age: 76 year(s) Patient #: [id number] Race: Unknown Additional ID: [id number] Contact details [address]: [address] [place] [address] State: [place] City: [place] Zip code: [address] Past Medical History Allergies: No known allergies Admission Admission Data Admission Date: 08/02/2016 Admission Time: 12:16 Room #: [facility] Weight (lbs.): 184 Weight (kg.): 83.46 Procedure Procedure Types Cath Procedure Peripheral Cath Diagnostic Procedure Cath Peripheral Abd/Extremity Extremities Left Lower Ext Arterio Procedure Description Procedure Date Procedure Date: 08/03/2016 Procedure Start Time: 14:57 Procedure Staff Name Function Munira Avila RN Nurse Doreen Vásquez RT [id number] Android Developer Doreen Vásquez RT Monitor Slick Jimenez RT Scrub Irwin Perla MD Performing Physician Manda Smith RN Nurse Procedure Data Cath Procedure Fluoroscopy Diagnostic fluoroscopy Total fluoroscopy Time: 1 time: 1 min min Diagnostic fluoroscopy Total fluoroscopy dose: 57 dose: 57 mGy mGy Contrast Material Contrast Material Type Amount (ml) Isovue 300 35 Entry Location Entry Primary Successful Side Size Upsize Upsize Entry Closure Succes sful Closure Location (Fr) 1 (Fr) 2 (Fr) Remarks Device Remarks Femoral Mynx artery Restorer [employer] 6Fr/7Fr Procedure Medications Medication Administration Route Dosage Fentanyl I.V. 50 mcg Versed I.V. 1 mg Fentanyl I.V. 50 mcg Benadryl I.V. 50 mg Heparin Bolus I.V. 5000 units Heparin Drip I.V. drip 1000 units/hr ([id number]/250 D5W) Hemodynamics Rest Heart Rate: 105 (bpm) Snapshots Pre Cath Intra NCS Post Cath Vital Signs Time Heart Resp SPO2 NIBP Rhythm Pain Sedation Rate (ipm) (%) (mmHg) Status Level (bpm) 14:39:13 109 26 91 102/89(95) NSR 0 (11) 10(A) , No pain 14:43:19 109 23 94 108/68(94) NSR 0 (11) 10(A) , No pain 14:48:18 106 26 92 Measuring NSR 0 (11) 10(A) , No pain 14:48:36 106 24 93 99/71(97) NSR 0 (11) 10(A) , No pain 14:52:44 103 28 94 117/69(78) NSR 0 (11) 10(A) , No pain 14:57:43 109 21 91 Measuring NSR 0 (11) 10(A) , No pain 14:57:57 105 24 92 100/66(83) NSR 0 (11) 10(A) , No pain 15:02:01 113 23 93 105/77(93) NSR 0 (11) 10(A) , No pain 15:07:00 116 26 90 Measuring NSR 0 (11) 9(A) , No pain 15:07:24 113 25 91 101/65(80) NSR 0 (11) 9(A) , No pain 15:11:28 109 26 92 108/76(94) NSR 0 (11) 9(A) , No pain 15:15:36 109 22 100 105/71(85) NSR 0 (11) 10(A) , No pain 15:19:42 108 22 100 108/70(86) NSR 0 (11) 10(A) , No pain 15:23:50 110 24 104/68(96) NSR 0 (11) 10(A) , No pain Medications Time Medication Route Dose Verified Delivered Reason Note s Effectiveness by by 14:55:59 Benadryl I.V. 50 mg Manda Manda for sedation Sarah Smith RN RN 15:00:01 Fentanyl I.V. 50 mcg Manda Manda for sedation Sarah Smith RN RN 15:00:17 Versed I.V. 1 mg Manda Amnda for sedation Sarah Smith RN RN 15:10:35 Fentanyl I.V. 50 mcg Manda Manda for sedation Sarah Smith RN RN 15:15:16 Heparin Bolus I.V. 5000 Manda Manda for units Sarah Smith anticoagulation RN RN 15:16:01 Heparin Drip I.V. 1000 Manda Manda for (26458kjzxa/250 drip units/hr Sarah Sarah anticoagulation D5W) RN department editor Log Time Note 14:15:38 Patient Weight : 184 kg 14:17:11 Use device set IR Diagnostic 14:17:12 Sterile Angiographic Pack opened to sterile field. 14:17:13 Bag Decanter opened to sterile field. 14:29:06 Time tracking: Regular hours 14:29:38 Plan of Care:Hemodynamics will remain stable., Cardiac rhythm will remain stable., Comfort level will be maintained., Respiratory function will remain adequate., Patient/ family verbilizes understanding of procedure., Procedure tolerated without complication., Recovers from procedure without complications.. 14:29:45 Patient received from CVICU to IR Alert and oriented. Tansferred to table in Supine position. 14:29:47 Correct patient and procedure confirmed by team. 14:29:49 Signed procedure consent form obtained from patient. 14:29:51 - 14:29:58 H&P Date Dictated: 08/03/2016 Within 30 days and on chart.. 14:30:00 Pre-op teaching completed and patient verbalized understanding. 14:30:00 Pre-procedure instructions explained to patient. 14:30:03 Family in waiting room. 14:30:05 Patient NPO since Midnight. 14:30:09 Is the patient allergic to Iodine/contrast media? No. 14:32:31 Is patient on blood thinner?Yes 14:32:34 Patient diabetic? Yes. 14:32:36 - 14:32:40 ----Pre-sedation anethsthesia assessment.---- 14:32:44 Previous problem with sedation/anesthesia? No ? 14:32:47 Snore? Yes 14:32:50 Sleep apnea? No 14:32:54 Deviated septum? No 14:32:57 Opens mouth fully? Yes 14:32:59 Sticks out tongue? Yes 14:33:04 Airway obstruction? Yes ? 14:33:07 Dentures? Yes ? 14:33:34 Pre procedure: left dorsailis pedis pulse 0-Absent 14:33:39 Pre procedure: left posterior tibial pulse Doppler 14:36:16 IV patent on arrival in left forearm with 0.9% NaCl at [facility]. 14:36:28 Right groin area was prepped with betadine and draped in sterile fashio n 14:36:30 Alarms reviewed by Yulissa Mohamud 14:36:31 - 14:36:31 Sharps counted by scrub and verified by Humphrey 14:38:03 ECG and BP/O2 sat monitors applied to patient. 14:38:23 Vital chart was started 14:38:24 Baseline sample Acquired. 14:38:28 Full Disclosure recording started 14:38:29 - 14:55:57 Physician arrived 14:55:59 Benadryl 50 mg I.V. was administered by Manda Smith RN; for sedation; 14:57:09 --------ALL STOP TIME OUT------ 14:57:10 Final Timeout: patient, procedure, and site verified with staff and physician. All members of the team are in agreement. 14:57:15 Physical assessment completed. ASA score P 3 - A patient with severe systemic disease as per Irwin Perla MD. 14:57:21 Sedation plan: IV Moderate Sedation Versed, Fentanyl 14:57:38 Procedure started. 14:59:26 Angiography was performed. 15:00:01 Fentanyl 50 mcg I.V. was administered by Manda Smith RN; for sedation; 15:00:17 Versed 1 mg I.V. was administered by Manda Smith RN; for sedation; 15:10:35 Fentanyl 50 mcg I.V. was administered by Manda Smith RN; for sedation; 15:13:05 Cook BENTSON 145cm guide wire opened to sterile field. 15:13:07 St Mango 6Fr sheath opened to sterile field. 15:15:16 Heparin Bolus 5000 units I.V. was administered by Manda Smith RN; for anticoagulation; 15:15:53 MYNX DIRECTOR [facility]URSING 6FR/7FR opened to sterile field. 15:16:01 Heparin Drip ([id number]/250 D5W) 1000 units/hr I.V. drip was administered by Manda Smith RN; for anticoagulation; 15:16:55 Sheath removed intact; hemostasis achieved with Mynx Restorer [employer] 6Fr/7Fr to th e Femoral artery. 15:16:55 A sheath was inserted into the Femoral artery 15:17:15 Procedure ended.(Physican Out) 15:17:24 Fluoroscopy time 01.00 minutes. 15:17:30 Fluoroscopy dose: 57 mGy 15:17:30 Flurop Dose total: 57 15:17:38 Contrast amount:Isovue 300 35ml. 15:17:42 Sharps counted by scrub and verified by R.N. 15:18:34 Procedure and supply charges have been captured, reviewed, submitted an d are correct. 15:26:11 Vital chart was stopped 15:26:14 Full Disclosure recording stopped Device Usage Item Name Manufacture Quantity Catalog Hospital Part Current Minimal Lot# / Number Charge Number Stock Stock Serial# Code Sterile Cardinal 1 [id number] 5 Angiographic Health Pack Bag Decanter Microtek 1 [id number] 5 [employer] [facility] 1 [id number] [id number] Mango 6Fr [employer] Mango 1 [id number] 5 [id number] sheath MYNX [employer]OR [facility] Access 1 [id number] 5 [id number] 6FR/7FR Closure Signature Audit [place] Stage Time Signature Unsigned Intra-Procedure 08/03/2016 Doreen Jimenez RT 3:26:08 PM RT(R) (R) (CV) 08/03/2016 3:35:55 PM Intra-Procedure 08/03/2016 Slick 3:37:55 PM [place] RT (R) (CV) Signatures Monitor : Doreen Vásquez RT Signature : Date : Time : [place] [id number] [facility] [place] [address]
[~2016-08-02 12:16] MED LIST changes: -COREG 3.1253.125 MG PO; -DOXYCYCLINE HY100 M2 PO; -ELIQUIS2.5 MG PO; -HYDROCODON-ACE1 EAC7 PO; -LANOXIN125 MCG PO; -PREDNISONE10 MG PO
[2016-08-02] MEDS ORDERED: DOXYCYCLINE HY100 M2 PO (14:22)
[2016-08-02 14:41] LABS: BASOPHILS 0.2 % (0.0-2.0); EOSINOPHILS 0.8 % (0-7); HEMATOCRIT 38.1 % (42.0-54.0); HEMOGLOBIN 12.1 g/dL (13.5-17.5); IMMATURE GRANULOCYTES 0.5 % (0-5); LYMPHOCYTES 10.4 % (15-50); MCH 28.6 pg (26.0-34.0); MCHC 31.8 g/dL (31.0-37.0); MCV 90.1 fL (80.0-100.0); MEAN PLATELET VOLUME 10.2 fL (7.4-10.4); MONOCYTES 9.6 % (2-11); NEUTROPHILS 78.5 % (40-80); PLATELET COUNT 234 10x3/uL (130-400); RBC 4.23 10x6/uL (4.20-6.10); RDW 13.4 % (11.5-14.5); WBC 12.8 10x3/uL (4.8-10.8)
--- NOTE | 2016-08-02 14:42 | NUR ---
PATIENT ADMITTED FROM [facility] OFFICE. RIGHT FOOT AMPUTATED. LEFT FOOT WITH DRESSING ON. PATIENT STATES HE HAS BLISTERS ON L FOOT WITH CLEAR DRAINAGE. SEE ASSESSMENT FOR FURTHER INFORMATION.
[2016-08-02 15:07] LABS: ALBUMIN 2.9 g/dL (3.4-5.0); ANION GAP 12.1 mmol/L (8-16); BILIRUBIN - TOTAL 0.85 mg/dL (0.2-1.3); CALCIUM 8.5 mg/dL (8.5-10.1); CARBON DIOXIDE 28.1 mmol/L (21.0-32.0); CREATININE - SERUM 1.5 mg/dL (0.6-1.3); POTASSIUM - SERUM 4.2 mmol/L (3.5-5.1); PROTEIN - SERUM 6.9 g/dL (6.4-8.2)
[2016-08-02 15:16] LABS: INR 1.17 (0.85-1.17); PROTIME 14.8 SECONDS (11.6-15.0)
--- NOTE | 2016-08-02 16:19 | NUR ---
ALERT AND ORIENTED X4. CONSENTS FOR ARTERIOGRAM SIGNED ON CHART. RT FA 22G SITED SUCCESSFUL X1 ATTEMPT INFUSING HEPARIN PER PROTOCOL. RT AC 20G IV SITED SUCCESSFUL X2 ATTEMPT INFUSING ANTIBIOTIC. IV SITED BY VASCULAR NURSE ROD. SITES INITIALED AND DATED. COMPLAINS OF SOB WHEN LAYING FLAT ON BACK. HOB ELEVATED 40 DEGREES. CONTINUE PLAN OF CARE AND SAFETY PRECAUTIONS. TAKEN TO PROCEDURE VIA BED.
--- NOTE | 2016-08-02 18:09 | NUR ---
REPORT CALLED TO MICHELLE MCGOWAN IN ICU FOR TRANSFER.
--- NOTE | 2016-08-02 18:20 | NUR ---
PATIENT TO ROOM VIA BED FROM IR WITH PERSONNEL X2, AWAKE AND CONFUSED, RIGHT LEG WITH SHEATH, TPA AND HEPARIN INFUSING THROUGH, SITE CDI, DENIES PAIN, LEFT LEFT LOWER LEG COLD WITH NO PEDAL PULSE, POLITEAL PULSE BY DOPPLER, FAMILY TO BEDSIDE, STATUS UPDATED, VOICES NO NEEDS AT THIS TIME ,
--- NOTE | 2016-08-02 19:00 | NUR ---
Assessment completed per flowsheet, patient resting in bed with eyes closed. AO x4, grimacing and c/o generalized discomfort. L eye @ 3mm with brisk response, R eye prosthesis. S1/S2 noted with patient Sinus Tach on telemetry. Breathing is shallow and rapid on 2L via NC, Inspiratory/Expiratory wheeze noted throughout all angelo with crackles noted Mid/Lower lobes bilateral. Abdomen is round and soft, bowel sounds active x4. R leg BKA, L foot reddened and swollen with blisters noted. Upper extremity pulses palpable, popliteal pulses doppler with absent pulse L foot. Full ROM upper with limited lower extremities, Patient uses prothesis and wheelchair for ambulation. Pain 8/10 generalized and L foot, PRN medication given and will reasses. No further needs at this time, all VSS and will continue to monitor.
[2016-08-02 19:42] LABS: BASOPHILS 0.1 % (0.0-2.0); EOSINOPHILS 0.7 % (0-7); HEMATOCRIT 40.4 % (42.0-54.0); HEMOGLOBIN 12.5 g/dL (13.5-17.5); IMMATURE GRANULOCYTES 0.5 % (0-5); LYMPHOCYTES 7.5 % (15-50); MCH 28.4 pg (26.0-34.0); MCHC 30.9 g/dL (31.0-37.0); MCV 91.8 fL (80.0-100.0); MEAN PLATELET VOLUME 10.4 fL (7.4-10.4); NEUTROPHILS 84.2 % (40-80); PLATELET COUNT 228 10x3/uL (130-400); RDW 13.6 % (11.5-14.5)
[2016-08-02 19:46] LABS: APTT 35.2 SECONDS (22.8-39.4)
--- NOTE | 2016-08-02 21:00 | NUR ---
Patient RR elevated with crackles noted, spoke to Dr Pascal regarding condition. Pandey cath placed and Lasix ordered and given, 200ml urine returned after palcement. Will continue plan of care and monitoring.
--- NOTE | 2016-08-02 23:00 | NUR ---
Reassessment completed per flowsheet, patient resting in bed with eyes closed. Patient Sinus tach on telemetry with HR 120, rhythmic and regular. Breathing is shallow and unlabored on 2L via NC, O2 sat 95%. Patient resting after medication given, states "feels much better". L foot cool to touch with absent pulses, popliteal pulses noted with doppler. No further needs at this time, all VSS and will continue to monitor.
[2016-08-02 23:56] LABS: BASOPHILS 0.1 % (0.0-2.0); EOSINOPHILS 0.1 % (0-7); HEMATOCRIT 38.1 % (42.0-54.0); IMMATURE GRANULOCYTES 0.6 % (0-5); LYMPHOCYTES 3.2 % (15-50); MCH 28.8 pg (26.0-34.0); MCHC 31.5 g/dL (31.0-37.0); MCV 91.6 fL (80.0-100.0); MEAN PLATELET VOLUME 10.2 fL (7.4-10.4); MONOCYTES 7.8 % (2-11); NEUTROPHILS 88.2 % (40-80); PLATELET COUNT 244 10x3/uL (130-400); RBC 4.16 10x6/uL (4.20-6.10); RDW 13.7 % (11.5-14.5)
[2016-08-03] VITALS (29 sets, daily range): BP systolic 89–128; BP diastolic 40–68; Ht 177.8 cm; Wt 81.8 kg
[2016-08-03 00:04] LABS: APTT 37.7 SECONDS (22.8-39.4)
--- NOTE | 2016-08-03 01:00 | NUR ---
Patient resting comfortably in bed, cath dressing CDI with no bleeding noted. Patient denies pain or other needs at this time, all VSS and will continue to monitor.
--- NOTE | 2016-08-03 02:57 | NUR ---
Reassessment completed per flowsheet, patient resting in bed with eyes closed. Patient Sinus Tach on telemetry, rhythmic and regular. Breathing is shallow and unlabored on 2L via NC, O2 sat 94%. ECG leads replaced, reminded patient to leave wires connected and patient states understanding. R groin dressing CDI, soft with no bleeding noted. Upper extremity pulses palpable, popliteal pulses palpable with no pedal pulses. Patient denies pain at this time, all VSS and will continue to monitor.
[2016-08-03 06:21] LABS: BASOPHILS 0.1 % (0.0-2.0); EOSINOPHILS 0.5 % (0-7); HEMATOCRIT 36.9 % (42.0-54.0); HEMOGLOBIN 11.4 g/dL (13.5-17.5); IMMATURE GRANULOCYTES 0.5 % (0-5); LYMPHOCYTES 9.2 % (15-50); MCH 28.4 pg (26.0-34.0); MCHC 30.9 g/dL (31.0-37.0); MEAN PLATELET VOLUME 10.3 fL (7.4-10.4); MONOCYTES 8.8 % (2-11); NEUTROPHILS 80.9 % (40-80); PLATELET COUNT 237 10x3/uL (130-400); RBC 4.01 10x6/uL (4.20-6.10); RDW 13.5 % (11.5-14.5); WBC 13.2 10x3/uL (4.8-10.8)
[2016-08-03 07:00] LABS: APTT 42.7 SECONDS (22.8-39.4); INR 1.19 (0.85-1.17)
--- NOTE | 2016-08-03 07:00 | NUR ---
REC'D REPORT AND RESUMED CARE, AAO, VSS, DENIES PAIN, O2 AT 4L NC , RIGHT BKA NOTED, LEFT GROIN SHEATH IN PLACE, ENCOURAGED TO KEEP LEG STRAIGHT, ASSESSMENT COMPLETE PER FLOWSHEET, CALL LIGHT IN REACH, VOICES NO NEEDS AT THIS TIME
[2016-08-03 07:02] LABS: ALBUMIN 2.6 g/dL (3.4-5.0); ANION GAP 13.2 mmol/L (8-16); BILIRUBIN - TOTAL 0.7 mg/dL (0.2-1.3); CALCIUM 8.4 mg/dL (8.5-10.1); CARBON DIOXIDE 28.3 mmol/L (21.0-32.0); CREATININE - SERUM 1.5 mg/dL (0.6-1.3); POTASSIUM - SERUM 4.5 mmol/L (3.5-5.1); PROTEIN - SERUM 6.2 g/dL (6.4-8.2)
--- NOTE | 2016-08-03 09:37 | NUR ---
PAIN IN LEG 12/15, MORPHINE 2MG IVP GIVEN PER ORDER
--- NOTE | 2016-08-03 10:00 | NUR ---
AM MEDS GIVEN WITH SIPS PER ORDER
--- NOTE | 2016-08-03 10:26 | NUR ---
DISCHARGE INSTRUCTIONS EXPLAINED AND COPIES GIVEN TO PATIENT, FAMILY AT BEDSIDE, NO NEEDS OR QUESTIONS AT THIS TIME, AWAITING TO SPEAK WITH CASE MGNT BEFORE DISCHARGE
--- NOTE | 2016-08-03 11:00 | NUR ---
ASSESSMENT COMPLETE PER FLOWSHEET, NO ACUTE CHANGE FROM PREVIOUS
--- NOTE | 2016-08-03 12:00 | NUR ---
FAMILY AT BEDSIDE, STATUS UPDATED, AWAITNG FOR PATIENT TO GO FOR PROCEDURE IN INTERVENTIONAL RADIOLOGY
[2016-08-03 12:09] LABS: BASOPHILS 0.1 % (0.0-2.0); EOSINOPHILS 0.4 % (0-7); HEMATOCRIT 38.7 % (42.0-54.0); HEMOGLOBIN 12.1 g/dL (13.5-17.5); IMMATURE GRANULOCYTES 0.5 % (0-5); LYMPHOCYTES 7.9 % (15-50); MCH 28.5 pg (26.0-34.0); MCHC 31.3 g/dL (31.0-37.0); MCV 91.1 fL (80.0-100.0); MEAN PLATELET VOLUME 10.4 fL (7.4-10.4); MONOCYTES 7.5 % (2-11); NEUTROPHILS 83.6 % (40-80); PLATELET COUNT 211 10x3/uL (130-400); RBC 4.25 10x6/uL (4.20-6.10); RDW 13.7 % (11.5-14.5); WBC 14.3 10x3/uL (4.8-10.8)
--- NOTE | 2016-08-03 12:24 | NUR ---
Patient Name: JADYN SIMMONS Admission Status: Elective Accout number: [id number] Admission Date: 08-02-2016 : 1940 Admission Diagnosis: Attending: KALEY Current LOS: 1 Anticipated DC Date: UNKNOWN Planned Disposition: Home with Home Health--[facility] RESUMPTION Primary Insurance: [facility] Is the patient Alert and Oriented? Yes * How many steps to enter\exit or inside your home? NONE * PCP DR VERONICA * Pharmacy [facility] ON [address] * Preadmission Environment Home Alone * ADLs Partial Dependent * Partial ADLs (Assistance needed) Ambulation * Equipment Cane Nebulizer Rolling Walker Wheelchair * List name and contact numbers for known caregivers / representatives who currently or will assist patient after discharge: RASHID SIMMONS, BROTHER, * Community resources currently utilized Home Health * Please name any agencies selected above. [facility]--[facility]UR[facility]YS[facility]ERAP[facility] * Additional services required to return to the preadmission environment? No * Can the patient safely return to the preadmission environment? Yes * Has this patient been hospitalized within the prior 30 days at any hospital? No Discharge Planning Comments: CM MET WITH PATIENT AND HIS BROTHER TO ASSESS DC PLAN/NEEDS. PT STATED PRIOR TO THIS ADMISSION HE WAS LIVING AT HOME ALONE AND HAD HH SERVICES WITH [facility]. HE STATED THAT HIS HOME IS A SAFE PLACE AND HE PLANS TO RETURN HOME AND RESUME HH SERVICES AT DISCHARGE IF HE IS ABLE TO. HE STATED HE MOSTLY USES HIS WHEELCHAIR. HIS BROTHER DRIVES HIM AND WILL PROVIDE HIS TRANSPORTATION WHEN DISCHARGED. PT STATED HE MAY NEED TO DISCUSS DC PLAN FURTHER WHEN HE KNOWS MORE FROM THE DOCTOR ABOUT HIS PLANS, BUT AT THIS TIME HE PLANS TO RETURN HOME ALONE. HE IS UNSURE IF HE WILL REQUIRE ANY FURTHER DME EQUIPMENT AT THIS TIME. CM WILL ASSIST WITH ANY DC NEEDS THEY ARISE. Rehabilitation Teacher: Nita Araujo RN, CM
[2016-08-03 12:47] LABS: APTT 27.7 SECONDS (22.8-39.4)
--- NOTE | 2016-08-03 14:30 | NUR ---
CARE ASSUMED OF PT. WILL CONTINUE PLAN OF CARE.
--- NOTE | 2016-08-03 14:40 | NUR ---
TAKEN TO IR VIA BED. CONSENTS SIGNED.
--- NOTE | 2016-08-03 16:00 | NUR ---
PT RETURNED FROM IR. DRESSING TO RIGHT GROIN C/D/I. NO SIGNS OF HEMATOMA NOTED. SAND BAG OVER SITE TO BE LEFT ON FOR TWO HOURS. WILL CONT TO MONITOR SITE.
--- NOTE | 2016-08-03 18:14 | NUR ---
SAND BAG REMOVED. ICE WATER REFRESHED. NO CHANGES NOTED AT THIS TIME. WILL CONTINUE TO ASSESS.
--- NOTE | 2016-08-03 19:00 | NUR ---
REPORT RECEIVED AND ASSESSMENT COMPLETED. PT HAS DISCOLORED LEFT FOOT AND LEG. PULSES FOUND WITH DOPPLER. RIGHT LEG BKA. PT HAS EXPIRATORY WHEEZE THROUGHOUT. SEE FLOWSHEET FOR FULL DETAILS.
[2016-08-03 19:40] LABS: APPEARANCE CLEAR (CLEAR); BILIRUBIN NEGATIVE (NEGATIVE); COLOR YELLOW (YELLOW); GLUCOSE NEGATIVE (NEGATIVE); KETONE NEGATIVE (NEGATIVE); LEUKOCYTE ESTERASE NEGATIVE (NEGATIVE); NITRITE NEGATIVE (NEGATIVE); PROTEIN NEGATIVE (NEGATIVE); SPECIFIC GRAVITY 1.015 (1.005-1.020); UROBILINOGEN NORMAL (NORMAL)
--- NOTE | 2016-08-03 21:00 | NUR ---
PT HAVING INCREASED DIFFICULTY BREATHING BUT STATES THAT THIS IS "HIS NORM"
--- NOTE | 2016-08-03 23:00 | NUR ---
REASESSMENT COMPLETED. SEE FLOWSHEET FOR FULL DETAILS. SOME CRACKLES PRESENT IN LUNGS. PT HAVING DIFFICULTY BREATHING. WILL ATTEMPT TO PLACE BIPAP TO ASSIST.
--- NOTE | 2016-08-03 23:30 | NUR ---
PT REFUSED BIPAP. O2 SAT AT 93. RR INCREASED IN UPPER 30'S . PT HAVING ANXIETY. NOTIFIED DR PACHECO. NEW ORDERS RECEIVED FOR LASIX 80MG IV. WILL ADMINISTER AND CONTINUE TO MONITOR CLOSELY.
[2016-08-04] VITALS (24 sets, daily range): BP systolic 90–139; BP diastolic 53–97
--- NOTE | 2016-08-04 01:10 | NUR ---
PT STILL HAVING SHORTNESS OF BREATH. 500 ML OUT SO FAR. PT EXPERIENCING ANXIETY. WILL CONTACT RESPIRATORY FOR FURTHER ASSITANCE
--- NOTE | 2016-08-04 03:00 | NUR ---
REASSESSMENT COMPLETED. SEE FLOWSHEET. PT HAS STARTED TO CALM DOWN. RESPIRATIONS STILL INCREASED, BUT ANXIETY LEVEL NOW BACK TO BASELINE. WILL CONTINUE TO MONITOR.
--- NOTE | 2016-08-04 05:13 | NUR ---
1400 URINE OUT DURING I&O COLLECTION. NO OTHER CHANGES IN STATUS AT THIS TIME. VSS. WILL CONTINUE TO MONITOR.
[2016-08-04 05:35] LABS: BASOPHILS 0.2 % (0.0-2.0); EOSINOPHILS 0.3 % (0-7); HEMATOCRIT 37.2 % (42.0-54.0); HEMOGLOBIN 11.7 g/dL (13.5-17.5); IMMATURE GRANULOCYTES 0.5 % (0-5); LYMPHOCYTES 4.9 % (15-50); MCH 28.6 pg (26.0-34.0); MCHC 31.5 g/dL (31.0-37.0); MEAN PLATELET VOLUME 10.5 fL (7.4-10.4); MONOCYTES 9.9 % (2-11); NEUTROPHILS 84.2 % (40-80); RBC 4.09 10x6/uL (4.20-6.10); RDW 13.6 % (11.5-14.5); WBC 13.1 10x3/uL (4.8-10.8)
[2016-08-04 05:38] LABS: PLATELET COUNT 267 10x3/uL (130-400)
[2016-08-04 05:45] LABS: APTT 50.9 SECONDS (22.8-39.4)
[2016-08-04 05:56] LABS: ALBUMIN 2.7 g/dL (3.4-5.0); ANION GAP 14.9 mmol/L (8-16); BILIRUBIN - TOTAL 0.81 mg/dL (0.2-1.3); CARBON DIOXIDE 27.7 mmol/L (21.0-32.0); CREATININE - SERUM 1.3 mg/dL (0.6-1.3); MAGNESIUM - SERUM 1.4 mg/dL (1.8-2.4); PHOSPHOROUS 3.1 mg/dL (2.5-4.9); PROTEIN - SERUM 6.5 g/dL (6.4-8.2); VANCOMYCIN - RANDOM 20.8 ug/mL (10.0-20.0)
[2016-08-04 05:58] LABS: POTASSIUM - SERUM 3.6 mmol/L (3.5-5.1)
[2016-08-04 06:26] LABS: APPEARANCE CLEAR (CLEAR); BILIRUBIN NEGATIVE (NEGATIVE); COLOR YELLOW (YELLOW); GLUCOSE NEGATIVE (NEGATIVE); KETONE NEGATIVE (NEGATIVE); LEUKOCYTE ESTERASE 2+ (NEGATIVE); NITRITE NEGATIVE (NEGATIVE); PROTEIN 2+ mg/dL (NEGATIVE); SPECIFIC GRAVITY 1.015 (1.005-1.020); UROBILINOGEN NORMAL (NORMAL)
[2016-08-04 06:27] LABS: BACTERIA MODERATE /hpf (NONE SEEN); EPITHELIAL CELLS OCC /hpf (0-5); RED CELLS - URINE OCC /hpf (0-5); WHITE CELLS - URINE 0-5 /hpf (0-5)
--- NOTE | 2016-08-04 07:45 | NUR ---
ASSESSMENT COMPLETE. AAO X4. PAIN 3/10. S1S2 NOTED, RADIAL PULSES PALP. LLL PULSE FOUND BY DOPPLER. RT BKA. GENERALIZED WEAKNESS. 4L NC. CRACKLES IN RUL, RML, AMALIA. DIMINISHED RLL, LLL. ACTIVE BOWEL SOUNDS X4. SAL DRAINING CLEAR/YELLOW URINE. FOR OTHER ASSESSMENT FINDINGS SEE FLOWSHEET
[2016-08-04 09:03] LABS: CKMB 2.1 U/L (0.0-3.6); CREATINE KINASE 147 UL (21-232)
[2016-08-04 09:04] LABS: TROPONIN-I 0.294 ng/mL (0.000-0.060)
--- NOTE | 2016-08-04 09:20 | NUR ---
NOTIFIED DR. VERONICA'S NURSE AT [facility].
--- NOTE | 2016-08-04 11:15 | NUR ---
REASSESSMENT COMPLETE, SEE FLOWSHEET FOR DETAILS. MINIMAL CHANGES
--- NOTE | 2016-08-04 13:00 | NUR ---
FAMILY AT BEDSIDE. INFORMED OF VISITING HOURS. PATIENT DENIES NEEDS AT THIS TIME.
--- NOTE | 2016-08-04 15:00 | NUR ---
[facility] TRENDING DOWN, PHYSICIAN AWARE
[2016-08-04 15:12] LABS: CKMB 2.2 U/L (0.0-3.6); CREATINE KINASE 177 UL (21-232)
[2016-08-04 15:14] LABS: TROPONIN-I 0.158 ng/mL (0.000-0.060)
--- NOTE | 2016-08-04 15:15 | NUR ---
REASSESSMENT COMPLETE, SEE FLOWSHEET FOR DETAILS. MINIMAL CHANGES
--- NOTE | 2016-08-04 15:49 | NUR ---
ASSISTED PATIENT TO BEDSIDE COMMOADE USING WALKER AND PROSTHESIS. NEEDS ASSIST PERSON X1 AND ASSIST DEVICE
--- NOTE | 2016-08-04 17:35 | NUR ---
PATIENT FINISHED WITH TRAY. DENIES OTHER NEEDS.
--- NOTE | 2016-08-04 19:05 | NUR ---
INITIAL ASSESSMENT COMPLETE, PATIENT AAOX4. NC @ 4L WITH O2 SATS 95-98%. RR SHALLOW AND NON-LABORED. S1S2 NOTED WITH HR 108. BOWEL SOUNDS ACTIVE. SAL DRAINING CLEAR YELLOW URINE TO GRAVITY. RADIAL PULSES PALPABLE, LEFT PEDAL PULSE DOPPLERED, RIGHT BKA. PIV IN RIGHT WRIST AND RFA, BOTH DRESSINGS C/D/I, BOTH PATENT AND WITHOUT REDNESS. INCISION ON RIGHT GROIN, DRESSING C/D/I. SEE ASSESSMENT FLOWSHEET FOR MORE DETAILS. VSS. CL IN REACH.
[2016-08-04 20:33] LABS: CKMB 1.7 U/L (0.0-3.6); CREATINE KINASE 163 UL (21-232); TROPONIN-I 0.183 ng/mL (0.000-0.060)
--- NOTE | 2016-08-04 21:00 | NUR ---
NIGHT MEDS GIVEN, DIET COKE GIVEN PER REQUEST. VSS. BROTHER CALLED FOR UPDATE, UPDATE GIVEN.
--- NOTE | 2016-08-04 23:05 | NUR ---
REASSESSMENT COMPLETE PER FLOWSHEET. NO ACUTE CHANGES, SEE FLOWSHEET FOR DETAILS. REPOSISTIONED FOR COMFORT AT THIS TIME, CL IN REACH.
[2016-08-05] VITALS (24 sets, daily range): BP systolic 82–138; BP diastolic 39–74
--- NOTE | 2016-08-05 00:28 | NUR ---
PATIENT UP TO BEDSIDE COMMODE WITH ASSISST. SMALL FORMED BM, PATIENT CLEANED UP AND TRANSFERED BACK TO BED.
--- NOTE | 2016-08-05 01:00 | NUR ---
PATIENT RESTING COMFORTABLY IN BED. VSS, CL IN REACH.
--- NOTE | 2016-08-05 03:00 | NUR ---
XRAY IN ROOM, TOLERATED WELL. REASSESSMENT COMPLETE, NO CHANGES. SEE FLOWSHEET FOR DETAILS.
--- NOTE | 2016-08-05 05:05 | NUR ---
COFFEE GIVEN PER REQUESTS, VSS, WILL MONITOR.
[2016-08-05 06:07] LABS: BASOPHILS 0.1 % (0.0-2.0); HEMATOCRIT 34.9 % (42.0-54.0); HEMOGLOBIN 10.7 g/dL (13.5-17.5); IMMATURE GRANULOCYTES 0.4 % (0-5); LYMPHOCYTES 6.6 % (15-50); MCH 27.6 pg (26.0-34.0); MCHC 30.7 g/dL (31.0-37.0); MCV 90.2 fL (80.0-100.0); MEAN PLATELET VOLUME 10.2 fL (7.4-10.4); NEUTROPHILS 81.9 % (40-80); PLATELET COUNT 242 10x3/uL (130-400); RBC 3.87 10x6/uL (4.20-6.10); RDW 13.7 % (11.5-14.5)
--- NOTE | 2016-08-05 06:10 | NUR ---
BROTHER AT BEDSIDE, UPDATE GIVEN.
[2016-08-05 06:33] LABS: ALBUMIN 2.4 g/dL (3.4-5.0); ANION GAP 12.7 mmol/L (8-16); BILIRUBIN - TOTAL 0.93 mg/dL (0.2-1.3); CALCIUM 7.9 mg/dL (8.5-10.1); CARBON DIOXIDE 29.3 mmol/L (21.0-32.0); CREATININE - SERUM 1.1 mg/dL (0.6-1.3); PROTEIN - SERUM 6.2 g/dL (6.4-8.2)
--- NOTE | 2016-08-05 07:30 | NUR ---
ASSESSMENT COMPLETE. AAO X4. RT EYE PROSTHESIS, YELLOW DRAINAGE FROM IT. S1S2 NOTED, RADIAL PULSES PALP. RT FEM PULSE PALP, LEFT PEDAL PULSE FOUND BY DOPPLER. ACTIVE BOWEL SOUNDS X4. GENERALIZD WEAKNESS, RT BKA. LT LEG SWOLLEN, RED, 6/10 PAIN, BLISTERS. FOR OTHER ASSESSMENT FINDINGS SEE FLOWSHEET. RF, RT WRIST PIV, SEE FLOWSHEET. WILL CONTINUE TO MONITOR.
[2016-08-05 07:34] LABS: APTT 40.6 SECONDS (22.8-39.4)
--- NOTE | 2016-08-05 07:50 | NUR ---
DR. VERONICA AT BEDSIDE. NOTIFIED OF LOW K, LOW BP (SYSTOLIC IN 90'S) AND RUN OF SVT LAST NIGHT WITH RESTING IN 120'S SINUS TACHY. NEW ORDERS RECEIVED.
--- NOTE | 2016-08-05 08:10 | NUR ---
RAHUL WEAVER WITH IR AT BEDSIDE. UPDATED THAT LT PEDAL PULSE CAN STILL BE FOUND BY DOPPLER, HEP OFF, ELIQUIS STARTED LAST NIGHT. NO NEW ORDERS
--- NOTE | 2016-08-05 09:22 | NUR ---
REPLACED K+ AND MAG ORALLY PER ELECTROLYTE PROTOCOL.
--- NOTE | 2016-08-05 09:45 | NUR ---
DR. MONCADA'S KIN GUZMAN AT BEDSIDE. NEW ORDERS RECEIVED
--- NOTE | 2016-08-05 10:12 | NUR ---
Nutrition follow-up: Diet: ADA consistent CHO PO intake ~25% average of last 3 meals Labs reviewed +BM Wt: 182# Will continue to provide food choices and honor food preferences within diet restrictions. RDN following.
--- NOTE | 2016-08-05 11:15 | NUR ---
REASSESSMENT COMPLETE, SEE FLOWSHEET FOR DETAILS. MINIMAL CHANGES. 3L NC. NO SHORTNESS OF BREATH NOTED. RESTING QUIETLY
--- NOTE | 2016-08-05 13:10 | NUR ---
DR. ANGULO AT BEDSIDE.
--- NOTE | 2016-08-05 13:29 | NUR ---
DR. BARAJAS AT BEDSIDE.
--- NOTE | 2016-08-05 15:15 | NUR ---
REASSESSMENT COMPLETE, SEE FLOWSHEET FOR DETAILS. MINIMAL CHANGES. FAMILY AT BEDSIDE.
--- NOTE | 2016-08-05 19:00 | NUR ---
REPORT RECEIVED, SHIFT ASSESSMENT COMPLETE. PATIENT AAOX4, S1S2 NOTED WITH NORMAL SINUS ON MONITOR. CRACKLES AND EXP WHEEZE IN RUL, RML, AMALIA. DIMINISHED IN RLL AND LLL. BOWEL SOUNDS ACTIVE. SAL DRAINING CLEAR YELLOW URINE TO GRAVITY. RADIAL PULSES +2, LEFT PEDAL PULSE DOPPLERED, RIGHT BKA. TRACE EDEMA IN EXTREMITIES. PIV IN RIGHT WRIST AND FOREARM, SITES ARE C/D/I AND WITHOUT REDNESS. SEE FLOWSHEET FOR MORE DETAILS. VSS.
--- NOTE | 2016-08-05 20:50 | NUR ---
NIGHT MEDS GIVEN, PT DENIES NEED.
--- NOTE | 2016-08-05 23:00 | NUR ---
REASSESSMENT COMPLETE PER FLOWSHEET. SEE FOR DETAILS.
[2016-08-06] VITALS (19 sets, daily range): BP systolic 93–114; BP diastolic 45–74
--- NOTE | 2016-08-06 01:00 | NUR ---
PATIENT RESTING IN BED WITH EYES CLOSED, VSS, WILL MONITOR.
[2016-08-06 06:18] LABS: ALBUMIN 2.5 g/dL (3.4-5.0); ANION GAP 10.4 mmol/L (8-16); BILIRUBIN - TOTAL 0.68 mg/dL (0.2-1.3); CALCIUM 8.3 mg/dL (8.5-10.1); CARBON DIOXIDE 31.6 mmol/L (21.0-32.0); CREATININE - SERUM 1.2 mg/dL (0.6-1.3); MAGNESIUM - SERUM 1.5 mg/dL (1.8-2.4); PHOSPHOROUS 3.2 mg/dL (2.5-4.9)
--- NOTE | 2016-08-06 16:08 | NUR ---
0715-RECIVED PER FLOW SHEET-AWAKE -ABLE TO FOLLOW COMMANDS-NOTED AFIB 12O'S ON MONITOR-DOBUTREX AT 3MCG/KG/MIN INFUSING-R WRIST-N/S AT 10ML/H INFUSING-O2 AT 4LNP-KBRN 0830-ASSISTED WITH BREAKFEST TRAY-TOLERATING WELL-NOTED AFIB 104 1030-PT AT BEDSIDE-NOTED HR 133 AFIB-PT STATES DOES NOT NOTICE-NIBP 104/78-DR ARRIETA PG'D 1045-DR WASHINGTON AT BEDSIDE 1230-REPAGED DR ARRIETA- 1300-RETURN CALL-INFORMED HR 133 AFIB-ORDER RECIEVED AND NOTED-DOBUTREX GTT STOPPED ORDERED-KBRN
--- NOTE | 2016-08-06 16:43 | NUR ---
1957-CALLED NURSE-STATING SEVERE NAUSEA-ZOFRAN 4MG IVP GIVEN
--- NOTE | 2016-08-06 19:10 | NUR ---
SHIFT ASSESSMENT COMPLETE, SEE FLOWSHEET FOR DETAILS. PATIENT SITTING UP IN BED AT THIS TIME. SINUS TACH OF 103 NOTED ON MONITOR, NORMAL SINUS RYTHEM NOTED. RR EVEN AND NON-LABORED. CRACKLES HEARD IN RUL, RML, AMALIA. DIMINISHED IN LOWER LOBES. BOWEL SOUNDS ACTIVE. RADIAL PULSES PALPABLE, RIGHT BKA, LEFT PEDAL PULSE DOPPLERED. DRESSING ON FOOT IS C/D/I, BLISTERS NOTED. PIV IN RIGHT WRIST IS PATENT, INFUSING NS @ KVO. SITE C/D/I, NO REDNESS. PATIENT HELPED TO BEDSIDE COMMODE, CL IN REACH.
--- NOTE | 2016-08-06 19:30 | NUR ---
PATIENT HAD SMALL FORMED, BROWN, BM. CLEANED UP AND ASSISSTED BACK TO BED. VSS.
--- NOTE | 2016-08-06 21:05 | NUR ---
NIGHT MEDS GIVEN, PT REQUEST DIET COKE. DENIES FURTHER NEED.
--- NOTE | 2016-08-06 23:00 | NUR ---
REASSESSMENT COMPLETE PER FLOWSHEET. SEE FOR DETAILS. NO ACUTE CHANGES. NS ON MONITOR WITH A RATE OF 74.
[2016-08-07] VITALS (17 sets, daily range): BP systolic 82–118; BP diastolic 47–66
--- NOTE | 2016-08-07 01:29 | NUR ---
RESTING IN BED WITH EYES CLOSED, NORMAL SINUS ON MONITOR, VSS.
--- NOTE | 2016-08-07 03:15 | NUR ---
REASSESSMENT COMPLETE, SEE FLOWSHEET. XRAY IN ROOM AT THIS TIME.
[2016-08-07 05:29] LABS: BASOPHILS 0.2 % (0.0-2.0); HEMATOCRIT 40.4 % (42.0-54.0); HEMOGLOBIN 12.2 g/dL (13.5-17.5); IMMATURE GRANULOCYTES 0.6 % (0-5); LYMPHOCYTES 12.4 % (15-50); MCHC 30.2 g/dL (31.0-37.0); MCV 92.7 fL (80.0-100.0); MONOCYTES 8.9 % (2-11); NEUTROPHILS 70.9 % (40-80); PLATELET COUNT 244 10x3/uL (130-400); RBC 4.36 10x6/uL (4.20-6.10); RDW 13.6 % (11.5-14.5); WBC 9.5 10x3/uL (4.8-10.8)
--- NOTE | 2016-08-07 05:30 | NUR ---
PATIENT RESTING QUIETLY WITH EYES CLOSED. VSS, CL IN REACH.
[2016-08-07 05:53] LABS: ALBUMIN 2.6 g/dL (3.4-5.0); ANION GAP 9.2 mmol/L (8-16); BILIRUBIN - TOTAL 0.59 mg/dL (0.2-1.3); CALCIUM 8.6 mg/dL (8.5-10.1); CARBON DIOXIDE 35.5 mmol/L (21.0-32.0); CREATININE - SERUM 1.2 mg/dL (0.6-1.3); MAGNESIUM - SERUM 1.8 mg/dL (1.8-2.4); PHOSPHOROUS 3.6 mg/dL (2.5-4.9); POTASSIUM - SERUM 3.7 mmol/L (3.5-5.1); PROTEIN - SERUM 7.1 g/dL (6.4-8.2)
--- NOTE | 2016-08-07 15:32 | NUR ---
1030-PT AWAKE AND ALERT-WATCHING TV- NOTED SR-99 WITH PAC ON MONITOR-R WRIST IV REMAINS INTACT 1400-DRG TO L FOOT CHANGED -NOTED SEROUS TYPE DRAINAGE FROM SITE-STAGE 2 BLISTERED AREA-LIGHTLY COBAN WRAPPED-PP WITH DPPLER ONLY
--- NOTE | 2016-08-07 17:59 | NUR ---
PT IS ALERT. NO SS OF DISTRESS AT THIS TIME. WILL CONTINUE TO MONITOR.
--- NOTE | 2016-08-07 19:15 | NUR ---
INITIAL ROUNDS MADE. PT SITTING UP IN BED WATCHING TV. DENIES NEEDS OR C/O AT THIS TIME. CALL LIGHT IN REACH. WILL CONT TO MONITOR.
[2016-08-08] VITALS: BP 106/64
--- NOTE | 2016-08-08 03:53 | NUR ---
LAUNDRY SORTER AT BEDSIDE FOR VS. NEEDS ADDRESSED. CALL LIGHT IN REACH. WILL CONT TO MONITOR.
[2016-08-08 04:00] VITALS: BP 99/67
[2016-08-08 06:17] LABS: BASOPHILS 0.2 % (0.0-2.0); EOSINOPHILS 5.1 % (0-7); HEMATOCRIT 37.6 % (42.0-54.0); HEMOGLOBIN 11.6 g/dL (13.5-17.5); IMMATURE GRANULOCYTES 0.5 % (0-5); LYMPHOCYTES 10.6 % (15-50); MCHC 30.9 g/dL (31.0-37.0); MEAN PLATELET VOLUME 9.9 fL (7.4-10.4); MONOCYTES 9.7 % (2-11); NEUTROPHILS 73.9 % (40-80); PLATELET COUNT 261 10x3/uL (130-400); RBC 4.15 10x6/uL (4.20-6.10); RDW 13.7 % (11.5-14.5)
[2016-08-08 06:23] LABS: MCV 90.6 fL (80.0-100.0)
[2016-08-08 06:54] LABS: ANION GAP 9.8 mmol/L (8-16); CALCIUM 8.9 mg/dL (8.5-10.1); CARBON DIOXIDE 34.2 mmol/L (21.0-32.0); CREATININE - SERUM 1.2 mg/dL (0.6-1.3); MAGNESIUM - SERUM 1.8 mg/dL (1.8-2.4); PHOSPHOROUS 2.9 mg/dL (2.5-4.9)
--- NOTE | 2016-08-08 07:22 | NUR ---
ASSESSMENT COMPLETED. TELEMERTY SHOWS SR. 02 AT 4 L/M PER NC. LEFT FOOT RED AND SWOLLEN. RIGHT BKA. SAL CATH TO BEDSIDE DRAINAGE. C/O SOME PAIN TO LEFT FOOT. SR UP WITH CALL LIGHT IN REACH
--- NOTE | 2016-08-08 08:18 | NUR ---
SITTING UP ON BEDSIDE EATING BREAKFAST. NO DISTRESS. MONITOR SHOWS ST WITH BBB WITH RATE OF 126. WILL CONTINUE TO MONITOR.
[2016-08-08 08:32] VITALS: BP 114/77
--- NOTE | 2016-08-08 10:00 | NUR ---
SITTING ON SIDE OF BED. DENIES ANY NEEDS. CALL LIGHT IN REACH WITH SR UP
[2016-08-08 12:35] VITALS: BP 111/59
--- NOTE | 2016-08-08 13:45 | NUR ---
LYING QUIETLY WITH HOB UP. DENIES ANY NEEDS. CALL LIGHT IN REACHWITH SR UP. WILL MONITOR
[2016-08-08 15:55] VITALS: BP 107/62
--- NOTE | 2016-08-08 18:17 | NUR ---
NO COMPLAINTS OR NEEDS VOICED. WILL MONITOR. TELEMERTY SHOWS SR 96
--- NOTE | 2016-08-08 19:57 | NUR ---
RESTING QUIETLY DENIES ANY NEEDS OR DISCOMFORT RESP UNLABORED WILL CONTINUE TO MONITOR
[2016-08-08 21:37] VITALS: BP 111/65
--- NOTE | 2016-08-09 02:37 | NUR ---
ASSESSMENT COMPLETE, BOX ALARM IS ON. BED IS LOW, SRX2 CALL LIGHT IN REACH, WILL CONTINUE TO MONTIOR
[2016-08-09 05:45] LABS: BASOPHILS 0.2 % (0.0-2.0); EOSINOPHILS 5.2 % (0-7); HEMATOCRIT 35.6 % (42.0-54.0); HEMOGLOBIN 10.9 g/dL (13.5-17.5); IMMATURE GRANULOCYTES 0.6 % (0-5); LYMPHOCYTES 8.1 % (15-50); MCH 27.6 pg (26.0-34.0); MCHC 30.6 g/dL (31.0-37.0); MCV 90.1 fL (80.0-100.0); MEAN PLATELET VOLUME 9.8 fL (7.4-10.4); MONOCYTES 9.5 % (2-11); NEUTROPHILS 76.4 % (40-80); PLATELET COUNT 258 10x3/uL (130-400); RBC 3.95 10x6/uL (4.20-6.10); RDW 13.7 % (11.5-14.5); WBC 11.4 10x3/uL (4.8-10.8)
[2016-08-09 05:54] VITALS: BP 102/55
[2016-08-09 06:02] VITALS: BP 103/57
[2016-08-09 06:12] LABS: ANION GAP 8.9 mmol/L (8-16); CALCIUM 8.8 mg/dL (8.5-10.1); CARBON DIOXIDE 36.8 mmol/L (21.0-32.0); CREATININE - SERUM 1.2 mg/dL (0.6-1.3); POTASSIUM - SERUM 3.7 mmol/L (3.5-5.1)
--- NOTE | 2016-08-09 07:40 | NUR ---
ASSESSMENT COMPLETED.TELEMERTY SHOWS. O2 AT 4 L/M PER NC. LEFT FOOT RED AND SWOLLEN WITH PULSE PRESENT. RIGHT BKA. SAL PATENT TO BEDSIDE GRAVITY BAG. WILL MONITOR.
[2016-08-09 08:00] VITALS: BP 114/68
[2016-08-09 12:00] VITALS: BP 114/64
--- NOTE | 2016-08-09 12:48 | NUR ---
Patient Name: JADYN SIMMONS Encounter No: [id number] : 1940 Primary Insurance: [facility] Anticipated DC Date: Planned Disposition: INPATIENT REHAB External Planned Provider: [facility] INPATIENT REHAB DCP follow-up note: CM RECEIVED ORDER FOR INPATIENT REHAB PRESCREENING. CM SPOKE TO PT IN ROOM, DISCUSSED REHAB OPTIONS. PT WOULD LIKE TO BE CONSIDERED FOR INPATIENT REHAB AT [facility] AND THEN DISCHARGE HOME WITH HOME HEALTH IF NEEDED. IMPORTANT MESSAGE FROM MEDICARE PROVIDED AND EXPLAINED. CM WAITING RESULT OF INPATIENT REHAB PRESCREENING AND INSURANCE AUTHORIZATION / DENIAL. Titus Banda, CASE MANAGEMENT
--- NOTE | 2016-08-09 13:09 | NUR ---
Nutrition follow-up: Diet: ADA consistent CHO PO intake 100% of last 3 meals Labs reviewed FSBS > 200 mg/dl +BM Wt: 179# PO intake improved at this time RDN following.
--- NOTE | 2016-08-09 14:31 | NUR ---
LYING QUIETLY WITH EYES CLOSED. TELEMERTY SHOWS SR. WILL MONITOR
[2016-08-09 16:00] VITALS: BP 105/55
--- NOTE | 2016-08-09 18:01 | NUR ---
RESTING QUIETLY DENIES ANY NEEDS OR DISCOMFORT NAD NOTED WILL CONTINUE TO MONITOR
--- NOTE | 2016-08-09 18:23 | NUR ---
OT NOTE: PT COMPLETED BUE AROM FOR INCREASED ACTIVITY TOLERANCE WITH ADLS. PT COMPLETED GROOMING/HYGIENE TASK WITH SET UP. PT COMPLETED BED MOB WITH SBA. THANK YOU, DEVON STEARNS/Ananda
--- NOTE | 2016-08-09 19:15 | NUR ---
INITIAL ROUNDS MADE. PT SITTING UP IN BED WATCHING TV. NO NEEDS OR C/O VOICED AT THIS TIME. CALL LIGHT IN REACH. WILL CONT TO MONITOR. SEE FLOWSHEET FOR ASSESSMENT.
[2016-08-09 20:00] VITALS: BP 117/63
[2016-08-10] VITALS: BP 105/49
[2016-08-10 04:00] VITALS: BP 110/68
--- NOTE | 2016-08-10 04:01 | NUR ---
PHOTOCOPYING EQUIPMENT MECHANIC AT BEDSIDE FOR VS. NEEDS ADDRESSED AT THIS TIME. CALL LIGHT IN REACH. WILL CONT TO MONITOR.
[2016-08-10 04:46] LABS: CALCIUM 8.9 mg/dL (8.5-10.1); CARBON DIOXIDE 39.4 mmol/L (21.0-32.0); CREATININE - SERUM 1.1 mg/dL (0.6-1.3); POTASSIUM - SERUM 3.4 mmol/L (3.5-5.1)
[2016-08-10 08:00] VITALS: BP 122/71
--- NOTE | 2016-08-10 10:11 | NUR ---
RESTS IN BED WITH CALL LIGHT IN REACH. TELEMETRY SR. RESP UL ON 02 4L NC. WILL CONT. PLAN OF CARE.
[2016-08-10 12:00] VITALS: BP 104/60
--- NOTE | 2016-08-10 15:02 | NUR ---
OT NOTE: PT CONT TO C/O PAIN IN L LE. HE REPORTS THAT HIS PAIN IS CONSTANT , WHETHER HE IS WT BEARING OR LIEING DOWN. HE WAS ABLE TO MELANIE PROSTHESIS WITHOUT DIFFICULTY; HE WAS ABLE TO TAKE A FEW STEPS WITH WALKER TO BATHROOM WITH CGA/SBA; BED MOB WITH SPV; UE AROM EXS WHILE SITTING ON EDGE OF BED TO IMPROVE STRENGTH AND FUNCTIONAL ENDURANCE
[2016-08-10 16:09] VITALS: BP 108/56
--- NOTE | 2016-08-10 17:23 | NUR ---
OT NOTE: PT COMPLETED BED MOB:SUPINE TO SIT WITH SBA. PT COMPLETED DYNAMIC SITTING BALANCE WITH SBA. PT COMPLETED BUE AROM EXERCISES FOR INCREASED AX TOLERANCE. PT COMPLETED GROOMING TASKS AT EOB WITH SBA. THANK YOU, DEVON STEARNS/Ananda
[2016-08-10 20:00] VITALS: BP 113/74
--- NOTE | 2016-08-10 20:00 | NUR ---
PT UP AND DOWN GOING TO BATHROOM. ST NOTED WITH HIS INCREASED LEVEL OF ACTIVITY, PLUS MAKING HIM VERY SHORT OF BREATH, FINALLY GOT PT SETTLED IN HIS BEDSIDE CHAIR AND TOLD HIM THAT HE NEEDED TO RELAX. PT WAS NOT IN A GOOD MOOD. WILL MONITOR.
--- NOTE | 2016-08-10 21:45 | NUR ---
PT NOW IN HIS BED. PROSTHESIS FOR RIGHT AKA OFF. C/O PAIN AND DISCOMFORT TO LEFT FOOT/TOES. PAIN PILL GIVEN. FSBS 236, SLIDING SCALE INSULIN ADMINISTERED. ASSISTED PT TO GET COMFORTABLE. POSITIONED FOR COMFORT. CALL LIGHT IN REACH.
[2016-08-11] VITALS: BP 100/60
[2016-08-11 04:00] VITALS: BP 95/61
--- NOTE | 2016-08-11 05:36 | NUR ---
AM BUMEX ADMINISTERED. IV ABT UP AND INFUSING. PT SLEEPING OFF AND ON. VOIDING TO URINAL. CALL LIGHT IN REACH.
[2016-08-11 05:40] LABS: ANION GAP 9.8 mmol/L (8-16); CALCIUM 8.3 mg/dL (8.5-10.1); CARBON DIOXIDE 36.7 mmol/L (21.0-32.0); CREATININE - SERUM 1.2 mg/dL (0.6-1.3); POTASSIUM - SERUM 3.5 mmol/L (3.5-5.1)
--- NOTE | 2016-08-11 06:05 | NUR ---
AM BLOOD SUGAR 196, 4 UNITS OF HUMULIN REG GIVEN.
[2016-08-11 07:39] LABS: BASOPHILS 0.3 % (0.0-2.0); HEMATOCRIT 37.6 % (42.0-54.0); HEMOGLOBIN 11.4 g/dL (13.5-17.5); IMMATURE GRANULOCYTES 0.7 % (0-5); LYMPHOCYTES 12.4 % (15-50); MCH 27.5 pg (26.0-34.0); MCHC 30.3 g/dL (31.0-37.0); MCV 90.8 fL (80.0-100.0); MONOCYTES 10.4 % (2-11); NEUTROPHILS 71.2 % (40-80); PLATELET COUNT 277 10x3/uL (130-400); RBC 4.14 10x6/uL (4.20-6.10); RDW 13.9 % (11.5-14.5)
--- NOTE | 2016-08-11 08:54 | NUR ---
PT CALLED REQUESTING PRN PAIN PILL AND WAS PROVIDED WITH HIS NORCO 5. PT VOICED THANKS AND DENIES ANY FURTHER NEEDS AT THIS TIME. RESIDENT CARE ASSOCIATE IN ROOM AND WILL BE GIVING ALL OTHER MORNING MEDICATIONS WITH HER INSTRUCTOR. WILL CPOC.
[2016-08-11 09:09] VITALS: BP 103/61
--- NOTE | 2016-08-11 10:47 | NUR ---
Rehab Prescreening Consult recieved and the chart has been reviewed. He is a good IRF candidate, but has [facility] managed MCR and will require a preauthorization. He has all the therapies they will need to evaluate. All information will be submitted to [facility] for their review today. Nora Quiroga RN Clinical Liaison, Rehab
[2016-08-11 12:29] VITALS: BP 107/66
[2016-08-11 16:33] VITALS: BP 93/66
--- NOTE | 2016-08-11 19:30 | NUR ---
ASSESSMENT COMPLETE, DENIES NEEDS AT THIS TIME. HOB UP SR UP X2, C/L IN REACH. RT AKA NOTED, WITH PROSTHESIS. TRANSFERS WELL W/O DIFF. CONTINUE TO MONITOR. SITTING UP IN BEDSIDE CHAIR WATCHING TV.
[2016-08-11 20:00] VITALS: BP 97/68
[2016-08-12] VITALS: BP 142/48
[2016-08-12 05:20] LABS: ANION GAP 7.4 mmol/L (8-16); CALCIUM 8.6 mg/dL (8.5-10.1); CARBON DIOXIDE 39.9 mmol/L (21.0-32.0); CREATININE - SERUM 1.2 mg/dL (0.6-1.3); POTASSIUM - SERUM 3.3 mmol/L (3.5-5.1)
[2016-08-12 08:25] VITALS: BP 114/63
--- NOTE | 2016-08-12 08:51 | NUR ---
PTS POTASSIUM LEVEL 3.3. 40MEQ OF LIQUID POTASSIUM GIVEN MIXED IN OJ PER ELECTROLYTE PROTOCOL. PT REC'D ALL MORNING MEDICATIONS ALONG WITH PRN PAIN MED FOR L.FOOT ACHING PAINS. INITIATED PTS IVPB VANCOMYCIN INFUSING VIA R.WRIST PIV WITH DRSG CDI AND SWAB CAPS IN USE. PT RESTING SITTING UP ON EDGE OF BED, DENIES ANY CURRENT NEEDS AT THIS TIME. CL IN REACH. WILL CPOC.
[2016-08-12 08:55] LABS: BASOPHILS 0.2 % (0.0-2.0); EOSINOPHILS 7.9 % (0-7); HEMATOCRIT 37.9 % (42.0-54.0); HEMOGLOBIN 11.5 g/dL (13.5-17.5); IMMATURE GRANULOCYTES 0.7 % (0-5); LYMPHOCYTES 15.5 % (15-50); MCH 27.7 pg (26.0-34.0); MCHC 30.3 g/dL (31.0-37.0); MCV 91.3 fL (80.0-100.0); MEAN PLATELET VOLUME 9.7 fL (7.4-10.4); MONOCYTES 10.3 % (2-11); NEUTROPHILS 65.4 % (40-80); PLATELET COUNT 253 10x3/uL (130-400); RBC 4.15 10x6/uL (4.20-6.10); RDW 14.1 % (11.5-14.5); WBC 10.3 10x3/uL (4.8-10.8)
[2016-08-12] MEDS ORDERED: ELIQUIS2.5 MG PO (09:28)
[2016-08-12] MEDS ORDERED: HYDROCODON-ACE1 EAC7 PO (09:29)
--- NOTE | 2016-08-12 09:57 | NUR ---
Nutrition Follow Up: Chart reviewed. Pt to possibly d/c to rehab today. Pt is eating 80% meal avg on a diabetic diet. I>O. +BM 08/09/16. Wt loss 4# since admit. Labs noted - Glucose elevated. Meds noted including Bumex, Humulin. Pt with good po intake at this time. Rec continue current diet. RD following.
--- NOTE | 2016-08-12 11:18 | NUR ---
DISCONNECTED PT FROM IV FLUIDS PER REQUEST AND ANBX WAS DONE INFUSING. PT WAITING TO EAT LUNCH DENIES ANY CURRENT PAIN OR NEEDS. CL IN REACH. WILL CPOC.
--- NOTE | 2016-08-12 11:42 | NUR ---
FSBS 389 PT REC'D 16 UNITS OF SS INSULIN. PT SITTING UP IN BEDSIDE CHAIR WAITING ON HIS LUNCH TRAY. DENIES ANY CURRENT PAIN OR FURTHER NEEDS. CL IN REACH. WILL CPOC.
[2016-08-12 12:28] VITALS: BP 103/59
[2016-08-12 15:01] VITALS: BP 100/55
--- NOTE | 2016-08-12 15:56 | NUR ---
PTS R.FA PIV INFILTRATED. REMOVED IV WITH CATHETER TIP FULLY INTACT. 22 GUAGE IV INSERTED INTO L.FA X1 ATTEMPT. INITIATED PTS IVPB TO INFUSE OVER 30 MINS. CHANGED PTS L.FOOT DRSG. CLEANSED WITH WOUND CLENSER PATTED DRY. APPLIED ADAPTIC TO SMALL OPENED SORE AREA THEN PLACED NONADHERENT DRSG OVER IT AND WRAPPED WITH KERLIX. PTS L.GREAT TOE HAD TOE NAIL FALLING OFF AND PT PULLED IT COMPLETELY OFF AND STATED IT WOULD FEEL BETTER. DRSG L.GREAT TOE THE SAME WAY THEN WRAPPED WITH KERLIX AND LUIS BANDAGE. PT VOICED THANKS AND STATED IT FELT MUCH BETTER ALL READY. PT DID REQUEST PRN PAIN MEDICATION AND WAS PROVIDED WITH IT. PT RESTING IN BED AND DENIES ANY FURTHER NEEDS AT THIS TIME. CL IN REACH, BED IN LOWEST, SIDE RAILS X2, WILL CPOC.
[2016-08-12 19:00] VITALS: BP 117/61
[2016-08-13] VITALS: BP 109/70
--- NOTE | 2016-08-13 00:19 | NUR ---
PT SITTING UP IN CHAIR, EYES CLOSED, RESPIRATIONS EVEN AND UNLABORED. PT EASILY ROUSABLE TO VERBAL STIMULI. CONTINUE TO MONITOR CLOSELY.
[2016-08-13 04:00] VITALS: BP 120/53
[2016-08-13 05:36] LABS: BASOPHILS 0.3 % (0.0-2.0); EOSINOPHILS 6.4 % (0-7); HEMATOCRIT 37.5 % (42.0-54.0); HEMOGLOBIN 11.3 g/dL (13.5-17.5); IMMATURE GRANULOCYTES 0.8 % (0-5); LYMPHOCYTES 11.7 % (15-50); MCH 27.4 pg (26.0-34.0); MCHC 30.1 g/dL (31.0-37.0); MCV 90.8 fL (80.0-100.0); MEAN PLATELET VOLUME 10.4 fL (7.4-10.4); MONOCYTES 8.3 % (2-11); NEUTROPHILS 72.5 % (40-80); PLATELET COUNT 218 10x3/uL (130-400); RBC 4.13 10x6/uL (4.20-6.10); WBC 10.8 10x3/uL (4.8-10.8)
--- NOTE | 2016-08-13 05:46 | NUR ---
PT LYING IN BED, EYES CLOSED, RESPIRATIONS EVEN AND UNLABORED. PT EASILY ROUSABLE TO VERBAL STIMULI. CONTINUE TO MONITOR CLOSELY.
[2016-08-13 05:53] LABS: ANION GAP 9.8 mmol/L (8-16); CALCIUM 8.1 mg/dL (8.5-10.1); CARBON DIOXIDE 37.1 mmol/L (21.0-32.0); CREATININE - SERUM 1.2 mg/dL (0.6-1.3); POTASSIUM - SERUM 3.9 mmol/L (3.5-5.1)
--- NOTE | 2016-08-13 07:41 | NUR ---
ASSESSMENT COMPLETED.PT DENIES ANY NEEDS. TELEMERTY SHOWS ST 104. 02 AT 3 L/M PER NC.PT HAS A RIGHT BKA WITH A PROSTISES. LEFT FOOT IS RED AND HAS A TOE NAIL REMOVED ON THE BIG TOE. WILL MONITOR
[2016-08-13 08:26] VITALS: BP 115/62
[2016-08-13] MEDS ORDERED: ELIQUIS2.5 MG PO (08:48)
--- NOTE | 2016-08-13 10:15 | NUR ---
UP ON SIDE OF BED. DENIES ANY NEEDS. CALL LIGHT IN REACH WITH SR UP. WILL MONITOR
[2016-08-13 12:30] VITALS: BP 100/58
--- NOTE | 2016-08-13 12:43 | NUR ---
UP ON SIDE OF BED. DENIES ANY NEEDS. CALL LIGHT IN REACH WITH SR UP. WILL MONITOR
--- NOTE | 2016-08-13 14:51 | NUR ---
CALL TO [facility] (ON-CALL REHAB). ALL INFO HAS BEEN SUBMITTED TO [facility] FOR PREAUTHORIZATION, WITH NO RESPONSE YET. WILL HOPEFULLY RECEIVE DETERMINATION FROM [facility] ON MONDAY.
[2016-08-13 16:00] VITALS: BP 119/73
--- NOTE | 2016-08-13 19:23 | NUR ---
INITIAL ROUNDS COMPLETED. PT DENIES ANY DISCOMFORT. WILL CONTINUE TO MONITOR.
--- NOTE | 2016-08-13 19:53 | NUR ---
ASSESSMENT COMPLETED AT 1945 HRS. HAS C/O L FOOT PAIN. PERCOCET PO GIVEN. O2 3LNC. ST WITH 1ST DEGREE AV BLOCK AND BBB NOTED. LF A SL. OLD RBKA WITH PROTHESIS NOTED. DRESSING TO L FOOT CLEAN' DRY ANDINTACT. FAINT POSTERIOR TIBIAL PULSE TO L FOOT NOTED. PALPABLE L POLPITEAL. EXP WHHEEZE NOTED TO R LUNG, BEL ALARM ON USE WILL CONTINUE TO MONITOR. SR UP X2, CALL LIGHT WITHIN REACH.
[2016-08-13 20:19] VITALS: BP 124/75
--- NOTE | 2016-08-13 22:43 | NUR ---
PM MEDS GIVNE. 2100 FSBS 308. 12 UNITS REGULAR INSULIN GUIEN SUB-Q TO UPPRE R ARM PER S/S. PM MEDS GIVNE AT THAT TIME AND SNACK SERVED. PT CURRENTLY RESTING WITH EYES CLOSED. RESP EVEN AND REGULAR. SR UP X2, CALL LIGHT WITHIN REACH.
[2016-08-14] VITALS: BP 94/46
--- NOTE | 2016-08-14 | NUR ---
ST WITH BBB HR 115. PT RESTING WITH EYES CLOSED. RESP EVEN AND REGULAR. SR UP X2, CALL LIGHT WITHIN REACH.
--- NOTE | 2016-08-14 03:30 | NUR ---
ST HR 119 PER CM. PT RESTING WITH EYES CLOSED. RESP EVEN AND REGULAR. SR UP X2, CALL LIGHT WITHIN REACH.
[2016-08-14 04:00] VITALS: BP 106/38
--- NOTE | 2016-08-14 04:23 | NUR ---
PT PULLED IV OUT WITH CTHETER INTACT. ATTEMPTED X3 FOR IV WITHOUT SUCCESS. IV STARTED #22 TO UPPER R ARM PER Saima MORA LPN. PERCOCET PO GIVEN FOR C/O PAIN. WILL CONTINUE TO MONITOR. SR UP X2, CALL LIGHT WITHIN REACH.
--- NOTE | 2016-08-14 05:34 | NUR ---
ST 120'S TO 130'S THROUGHOUT NIGHT. VSS. PT STATES PERCOCET HELPS CONTROL PAIN. NEEDS MET; WILL CONTINUE TO MONITOR.
[2016-08-14 06:13] LABS: ANION GAP 11.3 mmol/L (8-16); CALCIUM 8.3 mg/dL (8.5-10.1); CARBON DIOXIDE 35.1 mmol/L (21.0-32.0); CREATININE - SERUM 1.5 mg/dL (0.6-1.3); POTASSIUM - SERUM 3.4 mmol/L (3.5-5.1)
[2016-08-14 08:27] VITALS: BP 123/69
[2016-08-14 13:36] VITALS: BP 103/62
--- NOTE | 2016-08-14 17:31 | NUR ---
ALERT AND ORIENTED X4. RESTING IN BED. TOOK OFF TELEMETRY. PULLED OUT RT UPPER ARM IV. REFUSE RESITE. CONTINUE PAIN MANAGEMENT ORDERED. CONTINUE PLAN OF CARE AND SAFETY PRECAUTIONS.
[2016-08-14 19:00] VITALS: BP 90/53
--- NOTE | 2016-08-14 22:28 | NUR ---
INIITAL ROUNDS COMPLETED AT 1915 HRS. BROTHER AT BEDSIDE. PT STATED HE HAS BEEN INTERMITTENTLY CONFUSED ESPECIALLY AFTER WAKING UP. ALERT AND ORIENTED AT THIS TIME. ASSESSMENT COMPLETED AT [address] WITH BBB PER CM HR 105. O2 3LNC. LUNGS DIMINISHED IN BASES BILAT. NO IV. OLD R BKA. L FOOT DRESSING CLEAN, DRY AND INTACT. FAINT POSTERIOR TIBIAL PULSE NOTED. PALPABLE L POPLITEAL PULSE. BED ALARM PLACED. PM FSBS 194. 4 UNITS REG INSULIN GIVEN SUB-Q TO UPPER R ARM. PM MEDS GIVEN. PT CURRENTLY RESTING WITH EYES CLOSED. RESP EVEN AND REGULAR. SR UP X2, CALL LIGHT WITHIN REACH.
[2016-08-15] VITALS (7 sets, daily range): BP systolic 99–119; BP diastolic 50–66
--- NOTE | 2016-08-15 00:11 | NUR ---
PT SPILLED URINAL OIN BED AND FLLOR. PT AND FLOOR CLEANED. BED LINENS CHANGED. PT REPOSITIONED IN BED FOR COMFORT. SR UP X2, CALL LIGHT WITHIN REACH AND BED ALARM ON.
--- NOTE | 2016-08-15 01:20 | NUR ---
PT DIAPHORETIC AND STATING SOMETHING ISN'T RIGHT AT 0045 HRS. HR 146. O2 SAT 83% ON 4LNC. LUNGS TIGHT AND WET. RT CALLED. FSBS 258. BP 135/79. RT UPPED O2 TO 9L OXIMIZER AND PRN BREATHING TX INITIATED. IV STARTED #20 TO RAC WITH ATTEMPT X1. O2 SAT TO 94%. PT WILL NOT KEEP O2 ON. DR TONY PAGED AT 0105 HRS. AND RETURNED PAGED AT 0110 HRS. INFORMED OF SITUATION INCLUDING VS, FSBS, O2 9L OXIMIZER AND OVERALL STATUS. NEW ORDERS RECEIVED AND NOTED. LASIX 80 MG SIVP GIVEN. RESP LESS LABORED ATHIS TIME. WILL CONTINUE TO MONITOR. SR UP X2, CALL LIGHT WITHIN REACH.
--- NOTE | 2016-08-15 02:58 | NUR ---
BLADDER DISETNDED. PT HAS ONLY URINATED 75CC SINCE LASIX ADMINISTRATION. BLADDER SCAN STATED 190CC. IN AND OUT CATH DONE WITH 675CC URINE RETURN. O2 SAT 97% WITH HR [address] ST. RESP 30. PT IS NOT DIAPHORETIC AT THIS TIME. WILL CONTINUE TO MONITOR.
--- NOTE | 2016-08-15 04:21 | NUR ---
PT RESTING WITH EYES CLOSED. RESP [address] PER CM HR 126. O2 SAT 97% ON 8L OXIMIZER. WILL CONTINUE TO MONITOR. BED ALARM IN USE.
[2016-08-15 05:05] LABS: BASOPHILS 0.2 % (0.0-2.0); EOSINOPHILS 0.2 % (0-7); HEMATOCRIT 39.6 % (42.0-54.0); HEMOGLOBIN 12.1 g/dL (13.5-17.5); IMMATURE GRANULOCYTES 0.7 % (0-5); LYMPHOCYTES 2.7 % (15-50); MCH 27.6 pg (26.0-34.0); MCHC 30.6 g/dL (31.0-37.0); MCV 90.4 fL (80.0-100.0); MONOCYTES 5.4 % (2-11); NEUTROPHILS 90.8 % (40-80); RBC 4.38 10x6/uL (4.20-6.10); RDW 14.4 % (11.5-14.5)
[2016-08-15 05:12] LABS: PLATELET COUNT 264 10x3/uL (130-400); WBC 19.1 10x3/uL (4.8-10.8)
[2016-08-15 05:23] LABS: ANION GAP 12.2 mmol/L (8-16); CALCIUM 8.8 mg/dL (8.5-10.1); CARBON DIOXIDE 34.6 mmol/L (21.0-32.0); CREATININE - SERUM 1.9 mg/dL (0.6-1.3); POTASSIUM - SERUM 4.8 mmol/L (3.5-5.1)
--- NOTE | 2016-08-15 06:13 | NUR ---
PT DENIES ANY SOB THIS AM. ST PER CM HR 126. O2 SAT 97%. SKIN COOL AND DRY. AM FSBS 278. 10 UNITS REG INSULIN GIVEN PER S/S. AM MEDS GIVEN. PT'S BROTHER FLETCHER WAS CALLED THIS AM AND INFORMED OF PT'S PULMONARY EDEMA DURING THE NIGHT AND TX. NEEDS MET; WILL CONTINUE TO MONITOR.
[2016-08-15 08:49] LABS: ERYTHROCYTE SEDIMENTATION RATE 55 mm/hr (0-20)
--- NOTE | 2016-08-15 11:00 | NUR ---
ALERT AND ORIENTED X4. AMBULATING IN [place] ACCOMPANIED BY PHYSICAL THERAPY. SINUS TACH 118bpm ON TELEMETRY. 97% WITH 7L OXYMIZER. CONTINUE PLAN OF CARE AND SAFETY PRECAUTIONS.
--- NOTE | 2016-08-15 15:20 | NUR ---
Patient Name: JADYN SIMMONS Encounter No: [id number] : 1940 Primary Insurance: [id number] Anticipated DC Date: Planned Disposition: Home with Home Health External Planned Provider: [facility] DCP follow-up note: CM RECEIVED CALL FROM ROBIN OF [facility] WHO INFORMED CM THAT PT'S INSURANCE HAS DENIED INPATIENT REHAB SERVICES. ROBIN PROVIDED CONTACT NUMBER FOR PEER TO PEER APPEAL IF THE DOCTOR WOULD LIKE TO SPEAK TO THE INSURANCE COMPANY DOCTOR. CM NOTIFIED PT. PT DOES NOT THINK HE CAN AFFORD THE COPAY FOR [facility] REH[facility] BUT WOULD LIKE CM TO EXPLORE THE OPTION OF SHELTER REHAB IN CASE THE DOCTOR WILL NOT DO THE PEER TO PEER. IF PT HAS COPAY FOR [facility]LTER REHAB, PT WANTS TO GO HOME WITH [facility] RESUMPTION. IF DOCTOR WISHES TO APPEAL THE DENIAL FOR INPATIENT REHAB, PEER TO PEER CAN BE DONE BY CALLING EARLINE OF [facility], , EXT [phone]. CM TO FOLLOW AND ASSIST NEEDED. Titus Banda, CASE MANAGEMENT
[2016-08-15 16:28] LABS: BASOPHILS 0.2 % (0.0-2.0); HEMATOCRIT 38.5 % (42.0-54.0); HEMOGLOBIN 11.8 g/dL (13.5-17.5); IMMATURE GRANULOCYTES 0.7 % (0-5); LYMPHOCYTES 9.1 % (15-50); MCH 27.7 pg (26.0-34.0); MCHC 30.6 g/dL (31.0-37.0); MCV 90.4 fL (80.0-100.0); PLATELET COUNT 237 10x3/uL (130-400); RBC 4.26 10x6/uL (4.20-6.10); RDW 14.5 % (11.5-14.5); WBC 15.9 10x3/uL (4.8-10.8)
--- NOTE | 2016-08-15 16:59 | NUR ---
Rehab Note- Message was left from Migdalia with [facility] that the patient was denied an acute rehab stay. Notified Nita and BRYNN Pruitt. Face to Face can be set up with , contact #[phone]. Will continue to follow the patient at this time. Carol Ann Pastrana RN Clinical Liaison, [facility] Rehab/[facility]
--- NOTE | 2016-08-15 19:15 | NUR ---
INITIAL ROUNDS MADE. PT SITTING UP IN BED WITH FAMILY IN ROOM. NO NEEDS OR C/O VOICED AT THIS TIME. RT IN ROOM FOR SCHEDULED UPD. WILL CONT TO MONITOR.
[2016-08-16] VITALS: BP 90/51
[2016-08-16 04:00] VITALS: BP 106/69
[2016-08-16 07:23] LABS: ANION GAP 6.4 mmol/L (8-16); CALCIUM 8.8 mg/dL (8.5-10.1); CARBON DIOXIDE 38.5 mmol/L (21.0-32.0); CREATININE - SERUM 1.7 mg/dL (0.6-1.3); VANCOMYCIN - TROUGH 20.2 ug/mL (10.0-20.0)
[2016-08-16 07:24] LABS: POTASSIUM - SERUM 3.9 mmol/L (3.5-5.1)
[2016-08-16 08:00] VITALS: BP 108/67
[2016-08-16 08:45] LABS: HEMATOCRIT 39.5 % (42.0-54.0); HEMOGLOBIN 12.3 g/dL (13.5-17.5); LYMPHOCYTES 8.2 % (15-50); MCH 27.7 pg (26.0-34.0); MCHC 31.1 g/dL (31.0-37.0); MEAN PLATELET VOLUME 9.6 fL (7.4-10.4); NEUTROPHILS 84.5 % (40-80); PLATELET COUNT 239 10x3/uL (130-400); RBC 4.44 10x6/uL (4.20-6.10)
--- NOTE | 2016-08-16 10:26 | NUR ---
ALERT AND ORIENTED X4. RESTING IN BED. O2 @ 7L OXYMIZER. DENIES PAIN. COMPLAINS OF LT EYE VISION BECOMING BLURRED. ENCOURAGE TO CALL FOR HELP. DENIES ANY NEEDS. SINUS TACH 112bpm ON TELEMETRY. CONTINUE PLAN OF CARE. BED LOCKED AND LOW. CALL LIGHT IN REACH. TWO SIDERAILS UP.
[2016-08-16 12:08] VITALS: BP 111/60
--- NOTE | 2016-08-16 12:13 | NUR ---
WOUND CARE CONSULT: LEFT FOOT WITH LUIS WRAP AND MANSOOR SEEN. REMOVED. PATIENT REPORTS THAT HE "REMOVED MY OWN BIG TOENAIL" LEFT GREAT TOE WITH NO NAIL, NAIL BED IS MOSIT WITH NO DRAINAGE. LEFT DORSAL ASPECT MEASURES 4.0 CM X 2.0 CM WITH YELLOWISH WOUND BED, NO DRAINGE. THERE IS ADJENTANT TO TIS ANOTHER WOUND 1.0 CM X 1.0 CM WITH SAME WOUND BED. LEFT 2ND TOE WITH HEALING SCAB SEEN TO TOP OF TOE . COVERED WITH ADAPTIC, NON ADHESINCE WHITE PAD, MANSOOR AND WRAPPED WITH NEW LUIS BANDAGE. TOLERATED WELL. WILL CONTINUE TO FOLLOW.
--- NOTE | 2016-08-16 12:52 | NUR ---
ARRIVE BACK TO ROOM FROM LUNG SCAN. ALERT AND ORIENTED X4. RT IV INFILTRATED. DC RT AC IV TIP INTACT. HARD STICK. CALL ROD VASCULAR NURSE FOR IV RESITE. INITIATE PAIN MANAGEMENT. CONTINUE PLAN OF CARE AND SAFETY PRECAUTIONS.
--- NOTE | 2016-08-16 13:05 | NUR ---
IV ACCESS-22 GAUGE INSERTED IN RIGHT HAND. ROD CROW RN
--- NOTE | 2016-08-16 13:49 | NUR ---
Nutrition Follow Up: Pt reported that his appetite is poor at times. He said that sometimes he just does not feel hungry. Pt agreed to Glucerna daily and requests the vanilla flavor. Pt is eating 50% meal avg on a diabetic diet. I>O. +BM 08/15/16. Labs noted - Glucose elevated. Meds noted including Vanc, Bumex, Humulin. Pt with fair po intake at this time. Rec continue current diet. Will send Glucerna with breakfast. Will continue to provide selective menus. Rec consider an appetite stimulant. RD will continue to monitor pt progress.
[2016-08-16 16:00] VITALS: BP 102/72
--- NOTE | 2016-08-16 16:37 | NUR ---
Patient Name: JADYN SIMMONS Encounter No: [id number] : 1940 Primary Insurance: [facility] Anticipated DC Date: Planned Disposition: Home with Home Health External Planned Provider: [facility] DCP follow-up note: CM RECEIVED DENIAL LETTER FOR INPATIENT REHAB SERVICES FROM PT'S INSURANCE COMPANY, PROVIDED PT A COPY INSTRUCTED, HAD PT SIGN A COPY AND PLACED IN PT'S CHART. IMPORTANT MESSAGE FROM MEDICARE PROVIDED AND EXPLAINED. PT WANTING TO SEE IF HE CAN GET INTO SKILLED REHAB AND WILL GO IF THERE IS NO COPAY; IF NOT, PT PLANS TO GO HOME WITH HOME HEALTH SERVICES. CM WAITING FOR INFORMATION FROM [facility] TO SEE IF PT HAS COPAY FOR REHAB IN SNF; PT WILLING FOR DISCHARGE HOME WITH [facility] RESUMPTION. FOR DISCHARGE, NOTIFY [facility] AT [phone], FAX DISCHARGE INFORMATION TO [facility] AT [phone]. Titus Banda, CASE MANAGEMENT
--- NOTE | 2016-08-16 18:14 | NUR ---
RESTING IN BED. ALERT AND ORIENTED X4. BROTHER AT BEDSIDE. NO CHANGE. CONTINUE PLAN OF CARE AND SAFETY PRECAUTIONS. SINUS TACH 110bpm ON TELEMETRY.
[2016-08-16 21:13] VITALS: BP 106/63
--- NOTE | 2016-08-16 21:55 | NUR ---
HS MEDS GIVEN. FSBS 424, GAVE SLIDING SCALE INSULIN. PT FOCUSED ON HIS CELLPHONE AND TRYING TO CALL SOMEONE. GETTING IRRITATED. WILL MONITOR.
[2016-08-17 08:02] LABS: ANION GAP 12.6 mmol/L (8-16); CALCIUM 8.8 mg/dL (8.5-10.1); CARBON DIOXIDE 33.3 mmol/L (21.0-32.0); CREATININE - SERUM 1.6 mg/dL (0.6-1.3); POTASSIUM - SERUM 3.9 mmol/L (3.5-5.1)
[2016-08-17 08:20] LABS: BASOPHILS 0.2 % (0.0-2.0); EOSINOPHILS 2.2 % (0-7); IMMATURE GRANULOCYTES 0.4 % (0-5); LYMPHOCYTES 7.7 % (15-50); MCH 27.6 pg (26.0-34.0); MCHC 30.8 g/dL (31.0-37.0); MCV 89.9 fL (80.0-100.0); MEAN PLATELET VOLUME 10.1 fL (7.4-10.4); MONOCYTES 7.7 % (2-11); NEUTROPHILS 81.8 % (40-80); RBC 4.34 10x6/uL (4.20-6.10); RDW 14.4 % (11.5-14.5)
[2016-08-17 08:26] LABS: PLATELET COUNT 313 10x3/uL (130-400); WBC 18.8 10x3/uL (4.8-10.8)
[2016-08-17 08:37] VITALS: BP 143/81
--- NOTE | 2016-08-17 08:59 | NUR ---
Patient Name: JADYN SIMMONS Admission Status: Elective Accout number: [id number] Admission Date: 08-02-2016 : 1940 Admission Diagnosis:CELLULITIS OF LEFT LOWER LIMB Attending: KALEY Current LOS: 15 Anticipated DC Date: TO BE DETERMINED Planned Disposition: Home with Home Health / POSSIBLE NURSING HOME FACILITY FOR REHAB Primary Insurance: [facility] PLANNED EXTERNAL PROVIDER: [facility] OR [facility] Discharge Planning Comments: CM SPOKE TO [facility] WHO HAS MET WITH PT YESTERDAY; PT EXPRESSED PREFERENCE FOR [facility] AND [facility]; PT IS NOT WANTING NURSING HOME PLACEMENT IF HE HAS A COPAY WHICH CANNOT BE DETERMINED UNTIL INSURANCE AUTHORIZATION IS SUBMITTED BY FACILITY. CM CALLED [facility] AT [phone]; CM FAXED REFERRAL TO [facility] AT [phone]. CM WAITING FOR INFORMATION FROM NURSING HOME TO SEE IF PT HAS COPAY FOR REHAB IN SNF; PT WILLING FOR DISCHARGE HOME WITH [facility]UMPTION. FOR DISCHARGE, NOTIFY [facility] AT [phone], FAX DISCHARGE INFORMATION TO [facility] AT [phone]. Titus Banda, CASE MANAGEMENT
[2016-08-17 12:32] VITALS: BP 107/52
--- NOTE | 2016-08-17 14:01 | NUR ---
Patient Name: JADYN SIMMONS Encounter No: [id number] : 1940 Primary Insurance: [facility] Anticipated DC Date: Planned Disposition: [facility] FACILITY External Planned Provider: [facility], MEDICARE REHAB BED DCP follow-up note: CM RECEIVED CALL FROM [facility], , NO BED AND FACILITY DOES NOT HAVE AVAILABILITY OF WOUND CARE NURSE. CM SPOKE TO PT, ADVISED OF ABOVE, PT WOULD LIKE REFERRALS SENT TO [facility]DEL[facility]MAN OF [facility] AND [facility]. CM NOTIFIED ABDELRAHMAN AT [phone], FAXED REFERRAL TO [facility] AT [phone]. CM WAITING ADMISSION DETERMINATION FROM ABDELRAHMAN IN REGARDS TO [facility] AND [facility]. PT WILLING FOR DISCHARGE HOME WITH [facility] IF NECESSARY. FOR DISCHARGE, NOTIFY [facility] AT [phone], FAX DISCHARGE INFORMATION TO [facility] AT [phone]. Titus Bnada, CASE MANAGEMENT
--- NOTE | 2016-08-17 15:49 | NUR ---
THIS SHIFT, PATIENT HAS BEEN ALERT AND ORIENTED X4. HE IS SOMEWHAT CONCERN ABOUT HIS CONFUSION LAST NIGHT. DRESSING ON FOOT CHANGED. HAS BEEN AMBULATING TO CHAIR AND BACK TO BED.
[2016-08-17 16:07] VITALS: BP 101/64
--- NOTE | 2016-08-17 17:23 | NUR ---
Patient Name: JADYN SIMMONS Encounter No: [id number] : 1940 Primary Insurance: [facility] Anticipated DC Date: Planned Disposition: [facility] FACILITY External Planned Provider: [facility], MEDICARE REHAB BED DCP follow-up note: CM RECEIVED CALL FROM ABDELRAHMAN AT [phone], OF [facility], PT HAS BEEN ACCEPTED AND HAS INSURANCE AUTHORIZATION FOR REHAB SERVICES, NO COPAY FOR FIRST 20 DAYS. CM NOTIFIED PT AND HIS BROTHER IN ROOM, PT IN AGREEMENT WITH REHAB AT [facility] AT DISCHARGE. FOR DISCHARGE, NURSE REPORT TO BE CALLED TO [facility] AT [phone], FAX DISCHARGE INFORMATION TO [facility] AT [phone]. THE [facility] TO ARRANGE VAN TRANSPORTATION. Titus Banda, CASE MANAGEMENT
--- NOTE | 2016-08-17 18:37 | NUR ---
UP TO BR VISITING WITH FAMILY.
--- NOTE | 2016-08-17 19:04 | NUR ---
OT NOTE: PT COMPLETED SELF FEEDING SITTING UPRIGHT WITH SET UP. PT COMPLETED DYNAMIC SITTING BALANCE AXS FOR INCREASED I WITH ADLS. PT COMPLTED BUE AROM FOR INCREASED AX TOLERANCE. THANK YOU, DEVON STEARNS/Ananda
--- NOTE | 2016-08-17 19:30 | NUR ---
SITTING UP IN BEDSIDE CHAIR, VISITING WITH FAMILY, VOICES NO C/O PAIN OR DISCOMFORT ANT THIS TIME. C/L IN REACH. TELEMETRY SHOWING HR ST PER PIN DRAFTING MACHINE TENDER. RT BKA NOTED ALONG WITH PROSTHESIS IN PLACE. DRSG TO LEFT FOOT CDI. O2 AT 4L VIA OXIMIZER, RT HAND SL INTACT WITH NO R/S NOTED AT SITE. USES URINAL W/O DIFF. CONTINUE TO MONITOR.
--- NOTE | 2016-08-17 20:30 | NUR ---
BACK TO BED PER SELF, PULLING IV SL OUT WHEN TRANSFERRING TO BED. HOB UP SR UP X2, C/L IN REACH. AREA CLEANED, WILL RESITE LATER THIS SHIFT. JENNIFFER WELL. CONTINUE TO MONITOR.
[2016-08-17 20:57] VITALS: BP 100/59
[2016-08-17 23:00] VITALS: BP 99/44
[2016-08-18 05:08] LABS: BASOPHILS 0.1 % (0.0-2.0); EOSINOPHILS 2.5 % (0-7); HEMATOCRIT 37.9 % (42.0-54.0); HEMOGLOBIN 11.6 g/dL (13.5-17.5); IMMATURE GRANULOCYTES 0.5 % (0-5); LYMPHOCYTES 8.5 % (15-50); MCH 27.4 pg (26.0-34.0); MCHC 30.6 g/dL (31.0-37.0); MCV 89.6 fL (80.0-100.0); MONOCYTES 7.6 % (2-11); NEUTROPHILS 80.8 % (40-80); PLATELET COUNT 269 10x3/uL (130-400); RBC 4.23 10x6/uL (4.20-6.10); RDW 14.5 % (11.5-14.5)
[2016-08-18 05:27] LABS: ANION GAP 10.9 mmol/L (8-16); CALCIUM 8.7 mg/dL (8.5-10.1); CARBON DIOXIDE 38.3 mmol/L (21.0-32.0); CREATININE - SERUM 1.6 mg/dL (0.6-1.3); MAGNESIUM - SERUM 1.6 mg/dL (1.8-2.4); PHOSPHOROUS 3.9 mg/dL (2.5-4.9)
[2016-08-18 05:42] LABS: POTASSIUM - SERUM 3.2 mmol/L (3.5-5.1)
[2016-08-18 05:47] VITALS: BP 112/66
--- NOTE | 2016-08-18 07:22 | NUR ---
PT SITTING UP IN BED RECEIVING BREATHING TX, DENIES NEEDS WILL CONT TO MONITOR
[2016-08-18 07:44] VITALS: BP 100/49
--- NOTE | 2016-08-18 10:29 | NUR ---
PT CO OF URGENCY AND PAIN DURING URINATION. DID BLADDER SCAN POST VOID AND PT IS HOLDING 633 CC OF URINE ABDOMEN TIGHT. CALLED DR MICHAUD OFFICE TO SEE IF WE CAN PLACE A SAL. CALLED OFFICE X3 TIMES. NO ANSWER. LEFT A MESSAGE WILL KEEP TRYING
[2016-08-18 11:25] VITALS: BP 100/55
--- NOTE | 2016-08-18 11:29 | NUR ---
STUDENT NURSES INSERTED SAL CATH 16F. 10 CC STERILE FLUID INSERTED INTO BALLOON. PT TOLERATED WELL. IMMEDIATE URINE RETURN OF 1000 CC CLOUDY YELLOW URINE. PT IS CURRENTLY RECEIVING VANC ABX. WILL START NEXT ORDERED ABX WHEN FINISHED.
[2016-08-18 15:37] VITALS: BP 99/47
--- NOTE | 2016-08-18 18:02 | NUR ---
PT SITTING UP IN BED WITH SON AT BEDSIDE. DRESSING CAME OFF AND I REDRESSED IT SIGNED AND DATED
--- NOTE | 2016-08-18 18:22 | NUR ---
OT NOTE: PT COMPLETED BED MOB SUPINE TO SIT WITH SBA. PT COMPLETED DYNAMIC SITTING BALANCE WITH SBA/CGA. PT COMPLETED HYGIENE TASK WITH SET UP. THANK YOU, DEVON STEARNS/Ananda
--- NOTE | 2016-08-18 19:28 | NUR ---
RESUMED CARE OF PT, SITTING ON SIDE OF BED RESPIRATIONS EVEN AND UNLABORED ON 6LPM VIA OXYMIZER. [address] ST WITH BBB ON TELEMETRY. LEFT FOOT DRESSING CDI. SAL TO GRAVITY. NO NEEDS VOICED AT THIS TIME. FAMILY AT BEDSIDE. CALL LIGHT IN REACH. SEE NURSE ASSESSMENT. WILL CONTINUE TO MONITOR.
[2016-08-18 20:00] VITALS: BP 146/71
[2016-08-19] VITALS: BP 86/50
--- NOTE | 2016-08-19 03:10 | NUR ---
IV REMOVED BY PT, TIP INTACT. 2 UNSUCCESSFUL ATTEMPTS TO RESTART IV, WILL HAVE VASCULAR NURSE ATTEMPT IN AM. RESPIRATORY AT BEDSIDE FOR UPDRAFTS.
[2016-08-19 04:00] VITALS: BP 100/44
--- NOTE | 2016-08-19 04:18 | NUR ---
PROPOSAL LEAD WRITER AT BEDSIDE TO OBTAIN VITALS, CALL LIGHT IN REACH. WILL CONTINUE WITH PLAN OF CARE.
[2016-08-19 05:07] LABS: CALCIUM 9.7 mg/dL (8.5-10.1); CREATININE - SERUM 1.6 mg/dL (0.6-1.3); DIGOXIN 0.98 ng/mL (0.90-2.00); MAGNESIUM - SERUM 1.7 mg/dL (1.8-2.4); PHOSPHOROUS 4.5 mg/dL (2.5-4.9)
[2016-08-19 05:08] LABS: ANION GAP 8.4 mmol/L (8-16); POTASSIUM - SERUM 3.1 mmol/L (3.5-5.1)
[2016-08-19 05:09] LABS: CARBON DIOXIDE 42.7 mmol/L (21.0-32.0)
--- NOTE | 2016-08-19 06:34 | NUR ---
NO CHANGES FROM PREVIOUS ASSESSMENT. CALL LIGHT IN REACH.
--- NOTE | 2016-08-19 07:30 | NUR ---
RESTING QUIETLY EYES CLOSED RESP UNLABORED NAD NOTED
[2016-08-19 08:58] VITALS: BP 108/54
--- NOTE | 2016-08-19 10:41 | NUR ---
UP IN BEDSIDE CHAIR. DENIES ANY NEEDS. FAMILY AT BEDSIDE. WILL MONITOR
[2016-08-19 10:58] LABS: BASOPHILS 0.3 % (0.0-2.0); EOSINOPHILS 3.7 % (0-7); HEMATOCRIT 41.1 % (42.0-54.0); HEMOGLOBIN 12.7 g/dL (13.5-17.5); IMMATURE GRANULOCYTES 0.6 % (0-5); LYMPHOCYTES 9.3 % (15-50); MCHC 30.9 g/dL (31.0-37.0); MCV 90.5 fL (80.0-100.0); MEAN PLATELET VOLUME 10.2 fL (7.4-10.4); NEUTROPHILS 77.1 % (40-80); PLATELET COUNT 314 10x3/uL (130-400); RBC 4.54 10x6/uL (4.20-6.10); WBC 15.5 10x3/uL (4.8-10.8)
--- NOTE | 2016-08-19 11:18 | NUR ---
ATTEMPTED TO GET A SPUTUM SAMPLE FOR A RESPIRATORY CULTURE, BUT THE PATIENT IS NOT ABLE TO PRODUCE A SAMPLE AT THIS TIME.
--- NOTE | 2016-08-19 12:24 | EC ---
PATIENT:JADYN SIMMONS DATE OF SERVICE: 08/02/16 SEX: M MEDICAL RECORD: [id number] DATE OF : [birth year] LOCATION:D. D.212 AGE OF PATIENT: 76 ADMISSION DATE: 08/02/16 REFERRING PHYSICIAN: INTERPRETING PHYSICIAN: BALDEV SHIPMAN M.D. ECHOCARDIOGRAM REPORT ECHO CHARGES 5 ECHO LIMITED CLINICAL DIAGNOSIS: WORSENING CHF REASSESS EF AND MR ECHOCARDIOGRAPHIC MEASUREMENTS (adult normal given) AC root (d.<3.7cm) 3.7 LV Septum d (<1.2 cm> 1.2 Valve Excursion 2.0 LV Septum (systole) 1.3 Left Atria (s.<4.0cm> 4.5 LVPW d(<1.2cm) 1.1 RV (d.<2.3cm) 4.4 LVPW (sytole) 1.2 LV diastole(<5.6CM) 6.9 MV E-F(>70mm/sec) LV systole 6.0 LVOT Diameter 1.8 MV exc.(>10mm) 1.5 Est.ejection fraction (50-75%) Pericardial Effusion N DOPPLER: LVIT A 107 E 79.0 LA RVSP LVOT 74 AOP1/2T Asc. Ao 131 RVOT 78 RA PA 133 AV Gradient Peak 6.86 AV Mean 4.23 AV Area 1.3 MV Gradient Peak 16.61 MV Mean 5.11 MV Area COMMENTS: Portfolio Lead: Zeeshan SHOOK Text[employer] Bag Sewer:2 Dr. Shipman TAPE# PACS DATE OF SERVICE: 08/18/2016 REFERRING PHYSICIAN: Irwin Adams MD. INDICATION: Congestive heart failure. DESCRIPTION: This is a limited study to assess ejection fraction. DESCRIPTION: Left ventricle is moderately dilated. There is severe global hypokinesis noted. His ejection fraction is in the order of 10%-15%. Mitral ECHOCARDIOGRAM REPORT [id number] JADYN SIMMONS valve is structurally normal. There is tsal-ly-xsfaaioj regurgitation seen. Left atrium is mildly dilated. Right ventricle appears mildly dilated as well. IMPRESSION: 1. Severe left ventricular dysfunction with ejection fraction of 10%-15%. 2. Nswc-yo-gzuostwt mitral regurgitation. TRANSINT:[id number] Voice Confirmation ID: [id number] DOCUMENT ID: [id number] BALDEV SHIPMAN M.D. at 1224 CC: [id number] DICTATION DATE: 08/18/16 1610 RELAY ASSEMBLER: 08/19/16 0113 ADM IN [place] [id number] [place] [id number]
--- NOTE | 2016-08-19 12:24 | EC ---
PATIENT:JADYN SIMMONS DATE OF SERVICE: 08/02/16 SEX: M MEDICAL RECORD: [id number] DATE OF : [birth year] LOCATION:D. D.212 AGE OF PATIENT: 76 ADMISSION DATE: 08/02/16 REFERRING PHYSICIAN: INTERPRETING PHYSICIAN: BALDEV SHIPMAN M.D. ECHOCARDIOGRAM REPORT ECHO CHARGES 4 ECHO COMPLETE CLINICAL DIAGNOSIS: SOB/CHF ECHOCARDIOGRAPHIC MEASUREMENTS (adult normal given) AC root (d.<3.7cm) 3.7 LV Septum d (<1.2 cm> 1.2 Valve Excursion 2.0 LV Septum (systole) 1.3 Left Atria (s.<4.0cm> 4.5 LVPW d(<1.2cm) 1.1 RV (d.<2.3cm) 4.4 LVPW (sytole) 1.2 LV diastole(<5.6CM) 6.9 MV E-F(>70mm/sec) LV systole 6.0 LVOT Diameter 1.8 MV exc.(>10mm) 1.5 Est.ejection fraction (50-75%) Pericardial Effusion N DOPPLER: LVIT A 107 E 79.0 LA RVSP LVOT 74 AOP1/2T Asc. Ao 131 RVOT 78 RA PA 133 AV Gradient Peak 6.86 AV Mean 4.23 AV Area 1.3 MV Gradient Peak 16.61 MV Mean 5.11 MV Area COMMENTS: Christmas Tree Contractor: Zeeshan SHOOK Coal Grader:2 Dr. Shipman TAPE# PACS DATE OF SERVICE: 08/04/2016 INDICATION: Congestive heart failure. REFERRING PHYSICIAN: Irwin Adams MD DESCRIPTION: Left ventricle is moderately dilated. There is severe LV dysfunction noted. Estimated ejection is in the order of 15% to 20%. Mitral valve is structurally normal. There is mild to moderate regurgitation noted. Left atrium is moderately dilated. The aortic valve leaflets are slightly ECHOCARDIOGRAM REPORT [id number] JADYN SIMMONS thickened. However, there is no stenosis or regurgitation seen. Right ventricle is mildly dilated. Tricuspid valve is structurally normal. There is no regurgitation noted. Right atrium is mildly dilated. There is no pericardial effusion seen. IMPRESSION: 1. Moderately dilated left ventricle with severe left ventricular dysfunction with ejection fraction of 15% to 20%. 2. Mild to moderate mitral regurgitation. 3. Aortic valve sclerosis without stenosis. TRANSINT:[id number] Voice Confirmation ID: [id number] DOCUMENT ID: [id number] BALDEV SHIPMAN M.D. at 1224 CC: [id number] DICTATION DATE: 08/05/16 0807 PSYCHIATRIC AIDE: 08/05/16 1325 ADM IN [place] [id number] [place] [address]
[2016-08-19 12:44] VITALS: BP 89/40
--- NOTE | 2016-08-19 12:55 | NUR ---
NUTRITION MONITORING & EVAL CHART REVIEWED, PT VISIT. STATES HE IS NOT FEELING WELL TODAY. IS EATING LUNCH AT THIS TIME. ~50% INTAKE BREAKFAST. WILL CONTINUE TO PROVIDE DIET, MONITOR PO INTAKE. RD FOLLOWING
--- NOTE | 2016-08-19 13:16 | NUR ---
WEANED O2 FROM 3L TO 2L. SPO2 IS 94% ON 2LNC.
--- NOTE | 2016-08-19 16:01 | NUR ---
OT NOTE: PT COMPLETED DYNAMIC SITTING BALANCE WITH ADLS. PT COMPLETED HYGIENE TASK WITH SET UP. PT COMPLETED BUE STRENGTHENING EXS . THANK YOU, DEVON STEARNS/Ananda
--- NOTE | 2016-08-19 17:50 | NUR ---
UP IN BEDSIDE CHAIR. DENIES ANY NEEDS. CALL LIGHT IN REACH WITH SR UP
--- NOTE | 2016-08-19 19:30 | NUR ---
SITTING UP IN BEDSIDE CHAIR, DENIES NEEDS AT THIS TIME. O2 @ 3L VIA NC IN PLACE, RT HAND IV W/O R/S NOTED . RTBKA WITH PROSTHESES IN PLACE NOTED, DRESG TO LEFT FOOT CDI. C/L IN REACH,
[2016-08-19 20:00] VITALS: BP 100/55
--- NOTE | 2016-08-20 00:45 | NUR ---
IN BED, LYING ON RT SIDE WITH EYES CLOSED, RESP UNLAB NO S/S OF ACUTE DISTRESS NOTED. C/L IN REACH.
[2016-08-20 04:00] VITALS: BP 87/42
[2016-08-20 05:05] LABS: ALBUMIN 2.5 g/dL (3.4-5.0); ANION GAP 9.1 mmol/L (8-16); BILIRUBIN - TOTAL 0.76 mg/dL (0.2-1.3); CALCIUM 9.5 mg/dL (8.5-10.1); CARBON DIOXIDE 39.7 mmol/L (21.0-32.0); CREATININE - SERUM 1.6 mg/dL (0.6-1.3); POTASSIUM - SERUM 3.8 mmol/L (3.5-5.1); PROTEIN - SERUM 6.9 g/dL (6.4-8.2)
--- NOTE | 2016-08-20 06:45 | NUR ---
RECEIVED PT REPORT. NO CO PAIN AT THIS TIME. WILL CONTINUE PLAN OF CARE. NO OTHER NEEDS.
--- NOTE | 2016-08-20 07:39 | NUR ---
PT IS ALERT. ASSESSMENT DONE PER FLOWSHEET. NO OTHER NEEDS AT THIS TIME. WILL CONTINUE TO MONTIOR.
[2016-08-20 08:00] VITALS: BP 105/60
[2016-08-20 12:00] VITALS: BP 106/55
[2016-08-20 15:59] VITALS: BP 102/62
[2016-08-20 20:27] VITALS: BP 104/51
[2016-08-21 00:04] VITALS: BP 101/61
[2016-08-21 04:39] VITALS: BP 101/56
[2016-08-21 08:18] VITALS: BP 101/55
[2016-08-21 09:35] LABS: BASOPHILS 0.1 % (0.0-2.0); EOSINOPHILS 0 % (0-7); HEMATOCRIT 38.7 % (42.0-54.0); HEMOGLOBIN 12.3 g/dL (13.5-17.5); IMMATURE GRANULOCYTES 0.7 % (0-5); LYMPHOCYTES 7.1 % (15-50); MCH 27.5 pg (26.0-34.0); MCHC 31.8 g/dL (31.0-37.0); MCV 86.4 fL (80.0-100.0); MEAN PLATELET VOLUME 9.5 fL (7.4-10.4); MONOCYTES 4.2 % (2-11); NEUTROPHILS 87.9 % (40-80); PLATELET COUNT 305 10x3/uL (130-400); RBC 4.48 10x6/uL (4.20-6.10); RDW 14.6 % (11.5-14.5); WBC 16.9 10x3/uL (4.8-10.8)
[2016-08-21 09:45] LABS: CALCIUM 9.4 mg/dL (8.5-10.1); CREATININE - SERUM 1.9 mg/dL (0.6-1.3); POTASSIUM - SERUM 3.7 mmol/L (3.5-5.1)
[2016-08-21 09:57] LABS: CARBON DIOXIDE 40.7 mmol/L (21.0-32.0)
[2016-08-21 12:42] VITALS: BP 95/52
[2016-08-21 16:00] VITALS: BP 105/57
--- NOTE | 2016-08-21 20:09 | NUR ---
INITIAL ROUNDS COMPLETED AT 1920 HRS. PT DENIED ANY DISCOMFORT. ASSESSMENT COMPLETED AT 1954 HRS. VSS. SR PER CM HR 96 WITH BBB. IV TO RFA SL. O2 2LNC. LUNGS DIMINISHED IN BASES BILAT. 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 L FOOT DRESSING CDI L WEAK PEDAL PULSES NOTED. BED ALARM IN PLACE. WILL CONTINUE TO MONITOR. SR UP X2, CALL LIGHT WITHIN REACH.
[2016-08-21 20:48] VITALS: BP 101/65
--- NOTE | 2016-08-21 22:03 | NUR ---
PM MEDS GIVEN. FSBS 363. 24 UNITS REG INSULIN GIVEN SUB-Q TO UPPER R ARM. PM MEDS PASSED AND PM SNACK SERVED. PT CURRENTLY RESTING WITH EYES CLOSED. RESP EVEN AND REGULAR. SR UP X2, CALL LIGHT WITHIN REACH AND BED ALARM ON.
--- NOTE | 2016-08-21 23:20 | NUR ---
PT INCONTINENT OF URINE. INCONTINENT CARE DONE. BED LINENS CHANGED. PT REPOSITIONED IN BED FOR COMFORT. WILL CONTINUE TO ONITIR. SR UP X2, CALL LIGHT AND URINAL WITHIN REACH AND BED ALARM ON.
--- NOTE | 2016-08-22 00:07 | NUR ---
PT AWAKE; DENIES ANY DISCOMFORT. WILL CONTINUE TO MONITOR.
[2016-08-22 00:30] VITALS: BP 111/54
--- NOTE | 2016-08-22 02:09 | NUR ---
PT INCONTINENT OF URINE. INCONTINENT CARE DONE. WILL CONTINUE TO MONITOR.
--- NOTE | 2016-08-22 03:13 | NUR ---
PT AWAKE; DENIES ANY DISOCMFORT. LLUVIA CRACKERS GIVEN PER REQUEST. WILL CONTINUE TO MONITOR. SR UP X2, CALL LIGHT WITHIN REACH AND BED ALARM ON.
[2016-08-22 04:30] VITALS: BP 103/50
--- NOTE | 2016-08-22 04:46 | NUR ---
PT AWAKE; DENIES ANY DISCOMFORT. WILL CONTINUE TO MONITOR. BED ALARM ON.
[2016-08-22 04:58] LABS: BASOPHILS 0.1 % (0.0-2.0); EOSINOPHILS 0.6 % (0-7); HEMATOCRIT 41.1 % (42.0-54.0); HEMOGLOBIN 13.1 g/dL (13.5-17.5); LYMPHOCYTES 12.4 % (15-50); MCH 27.2 pg (26.0-34.0); MCHC 31.9 g/dL (31.0-37.0); MCV 85.3 fL (80.0-100.0); MEAN PLATELET VOLUME 9.4 fL (7.4-10.4); MONOCYTES 8.6 % (2-11); NEUTROPHILS 77.3 % (40-80); PLATELET COUNT 322 10x3/uL (130-400); RBC 4.82 10x6/uL (4.20-6.10); RDW 14.5 % (11.5-14.5); WBC 17.2 10x3/uL (4.8-10.8)
[2016-08-22 05:34] LABS: CREATININE - SERUM 1.9 mg/dL (0.6-1.3); MAGNESIUM - SERUM 1.8 mg/dL (1.8-2.4); PHOSPHOROUS 5.1 mg/dL (2.5-4.9); POTASSIUM - SERUM 3.5 mmol/L (3.5-5.1)
[2016-08-22 06:02] LABS: ANION GAP 8.6 mmol/L (8-16)
[2016-08-22 06:05] LABS: CARBON DIOXIDE 42.9 mmol/L (21.0-32.0)
--- NOTE | 2016-08-22 06:41 | NUR ---
PT INCONTINENT OF URINE. INCONTINENT CARE DONE. BED LINENS CHANGED. AM FSBS 381. 24 UNITS REG INSULIN GIVNE SUB-Q PER S/S. VSS THROUGHOUT NIGHT. PT INCONTINENT NUMEROUS TIMES DURING SHIFT. NEEDS MET; WILL CONTINUE TO MONITOR.
--- NOTE | 2016-08-22 07:15 | NUR ---
RESTING QUIETLY EYES CLOSED RESP UNLABORED NAD NOTED
--- NOTE | 2016-08-22 07:30 | NUR ---
ASSESSMENT COMPLETED. CONFUSED.SITTING UP IN BED, DENIES ANY PAIN. TELEMERTY SHOWS SR. LEFT FOOT WITH DRSG DRY AND INTACT. RIGHT BKA. PT HAS A BED ALARM. UP TO BEDSIDE CHAIR. CALL LIGHT IN REACH. WILL MONITOR
[2016-08-22 08:00] VITALS: BP 80/55
--- NOTE | 2016-08-22 10:38 | NUR ---
Rehab Prescreening Consult recieved and the chart was removed. Rehab had recieved a referral for this patient on 08/10/16. All information was faxed to [facility] for a preauthorization. The request for authorization was denied by [facility]. Spoke to the BRYNN Banda who says he is accepted to [facility]. Nora Quiroga RN Clinical Liaison, Rehab
[2016-08-22 12:00] VITALS: BP 98/64
--- NOTE | 2016-08-22 14:45 | NUR ---
Patient Name: JADYN SIMMONS Encounter No: [id number] : 1940 Primary Insurance: [id number] Anticipated DC Date: Planned Disposition: [facility] External Planned Provider: [facility] DCP follow-up note: CM RECEIVED CALL FROM ABDELRAHMAN AT [phone], OF [facility], PT HAS BEEN ACCEPTED AND HAS INSURANCE AUTHORIZATION FOR REHAB SERVICES, NO COPAY FOR FIRST 20 DAYS. CM NOTIFIED PT IN ROOM, PT IN AGREEMENT WITH REHAB AT [facility] AT DISCHARGE. CM FAXED HOSPITAL UPDATE TO [facility] AT [phone]. FOR DISCHARGE, NURSE REPORT TO BE CALLED TO [facility] AT [phone], FAX DISCHARGE INFORMATION TO [facility] AT [phone]. [facility] TO ARRANGE VAN TRANSPORTATION. Titus Banda, CASE MANAGEMENT
--- NOTE | 2016-08-22 16:18 | NUR ---
UP IN CHAIR. DENIES ANY NEEDS. HOPING TO BE DISCHARGED. CALL LIGHT IN REACH WITH SR UP. WILL MONITOR.
--- NOTE | 2016-08-22 18:50 | NUR ---
UP IN WHEELCHAIR. BROTHER TAKING HIM AROUND UNIT. DENIES ANY NEEDS,
--- NOTE | 2016-08-22 19:30 | NUR ---
IN W/C BEING PUSHED BY BROTHER. NO S/S OF ACUTE DISTRESS NOTED. WILL CONTINUE TO MONITOR.
--- NOTE | 2016-08-22 23:00 | NUR ---
IV PULLED OUT INTACT, FOUND DANGLING FROM PUMP. O2 OFF FACE, FOUND ON FLOOR, REPLACED. CLEANED UP CLEAN LINEN PLACED ON BED. JENNIFFER WELL.
[2016-08-23 02:33] VITALS: BP 85/51
[2016-08-23 05:37] LABS: HEMATOCRIT 47.1 % (42.0-54.0); HEMOGLOBIN 15.2 g/dL (13.5-17.5); MCH 27.8 pg (26.0-34.0); MCHC 32.3 g/dL (31.0-37.0); MCV 86.1 fL (80.0-100.0); MEAN PLATELET VOLUME 9.9 fL (7.4-10.4); RBC 5.47 10x6/uL (4.20-6.10); RDW 14.6 % (11.5-14.5); WBC 19.5 10x3/uL (4.8-10.8)
[2016-08-23 05:43] LABS: CALCIUM 10.1 mg/dL (8.5-10.1); CREATININE - SERUM 2.2 mg/dL (0.6-1.3); POTASSIUM - SERUM 3.4 mmol/L (3.5-5.1)
[2016-08-23 06:01] LABS: ANION GAP 11.8 mmol/L (8-16); CARBON DIOXIDE 43.6 mmol/L (21.0-32.0)
[2016-08-23 06:37] VITALS: BP 85/50
[2016-08-23 08:14] VITALS: BP 90/54
--- NOTE | 2016-08-23 08:22 | NUR ---
ASSESSMENT COMPLETED. ALERT DENIES ANY NEEDS. TELEMETRY SHOWS SR 100. 02 AT 2 L/M PER NC.LEFT FA SL. RIGHT BKA, LEFT FOOT WITH DRSG. WILL MONITOR
--- NOTE | 2016-08-23 13:32 | NUR ---
Nutrition follow-up: Diet: ADA consistent CHO PO intake ~65% average of last 9 meals Labs reviewed +BM Right BKA PO intake has improved a little. Will continue to provide food choices and honor food preferences within diet restrictions. RDN following.
--- NOTE | 2016-08-23 14:23 | NUR ---
OT NOTE: PT REPORTED FEELING BETTER TODAY; FAMILY WAS GOING TO TAKE HIM OUTSIDE; BED MOB WITH SPV; CGA WITH USE OF WALKER TO AMB APPROX 10 FT TO WC; LESS PAIN REPORTED TODAY
[2016-08-23 15:52] VITALS: BP 105/49
--- NOTE | 2016-08-23 16:01 | NUR ---
RESTING QUIETLY. PATIENT WENT OUTSIDE IN WC WITH FAMILY. JENNIFFER WELL. WILL CONTINUE TO MONITOR.
--- NOTE | 2016-08-23 18:23 | NUR ---
UP IN BEDSIDE CHAIR FOR DIET. DENIES ANY NEEDS. TELEMERTY OFF. PT REFUSES TO WEAR. WILL MONITOR
--- NOTE | 2016-08-23 18:53 | NUR ---
Patient Name: JADYN SIMMONS Encounter No: [id number] : 1940 Primary Insurance: [employer] Anticipated DC Date: Planned Disposition: [facility]AC[facility] External Planned Provider: [facility] DCP follow-up note: CM RECEIVED CALL FROM ABDELRAHMAN AT [phone], OF [facility], PT HAS BEEN ACCEPTED AND HAS INSURANCE AUTHORIZATION FOR REHAB SERVICES. FACILITY CONCERNED WITH INCREASING WBC. CM NOTIFIED PT IN ROOM, PT IN AGREEMENT WITH REHAB AT [facility] AT DISCHARGE WHEN STABLE. CM FAXED HOSPITAL UPDATE TO [facility] AT [phone]. [facility] FACILITY CONCERNED OF INCREASING WBC; CM WILL NEED TO INFORM FACILITY OF WHAT ANTIBIOTICS (MED, DOSE, RATE AND DURATION) PT WILL NEED FOR DISCHARGE TO [facility] F[facility]ILITY TO MAKE FURTHER DISCHARGE ARRANGEMENTS FOR REHAB SERVICES. CM TO FOLLOW AND ASSIST NEEDED. Titus Banda, CASE MANAGEMENT
[2016-08-23 19:00] LABS: BASOPHILS 0.2 % (0.0-2.0); EOSINOPHILS 0.2 % (0-7); HEMATOCRIT 43.9 % (42.0-54.0); HEMOGLOBIN 13.7 g/dL (13.5-17.5); IMMATURE GRANULOCYTES 1.1 % (0-5); LYMPHOCYTES 6.7 % (15-50); MCH 27.5 pg (26.0-34.0); MCHC 31.2 g/dL (31.0-37.0); MEAN PLATELET VOLUME 9.6 fL (7.4-10.4); NEUTROPHILS 84.8 % (40-80); RBC 4.99 10x6/uL (4.20-6.10); RDW 15.1 % (11.5-14.5); WBC 17.2 10x3/uL (4.8-10.8)
--- NOTE | 2016-08-23 19:00 | NUR ---
INITIAL ROUNDS MADE. PT SITTING UP IN CHAIR AT BEDSIDE. DENIES NEEDS OR C/O AT THIS TIME. CALL LIGHT IN REACH. WILL CONT TO MONITOR.
[2016-08-23 19:01] LABS: PLATELET COUNT 274 10x3/uL (130-400)
[2016-08-23 21:58] VITALS: BP 89/42
[2016-08-24 02:03] VITALS: BP 96/53
--- NOTE | 2016-08-24 04:12 | NUR ---
DRILLING FIELD OPERATOR AT BEDSIDE FOR VS. NEEDS ADDRESSED. CALL LIGHT INREACH. WILL CONT TO MONITOR.
[2016-08-24 04:52] LABS: CREATININE - SERUM 2.2 mg/dL (0.6-1.3); POTASSIUM - SERUM 3.7 mmol/L (3.5-5.1)
[2016-08-24 04:56] LABS: ANION GAP 7.8 mmol/L (8-16); CARBON DIOXIDE 42.9 mmol/L (21.0-32.0)
[2016-08-24 05:44] VITALS: BP 94/59
[2016-08-24 07:52] VITALS: BP 107/54
[2016-08-24] MEDS ORDERED: BUMEX 1 MG TAB1 MG PO (08:59)
[2016-08-24] MEDS ORDERED: COREG 3.1253.125 MG PO (08:59)
[2016-08-24] MEDS ORDERED: LANOXIN125 MCG PO (08:59)
[2016-08-24] MEDS ORDERED: HYDROCODON-ACE1 EAC7 PO (10:41)
[2016-08-24] MEDS ORDERED: PREDNISONE10 MG PO (10:48)
--- NOTE | 2016-08-24 11:07 | NUR ---
Patient Name: JADYN SIMMONS Encounter No: [id number] : 1940 Primary Insurance: [id number] Anticipated DC Date: 08-24-2016 Planned Disposition: [facility] Facility External Planned Provider: [facility], MEDICARE REHAB BED DCP follow-up note: CM RECEIVED DISCHARGE ORDER, MET WITH PT AND BROTHER IN ROOM, BOTH IN AGREEMENT WITH DISCHARGE TO [facility] FOR REHAB TODAY. IMPORTANT MESSAGE FROM [employer] PROVIDED AND DISCUSSED. CM FAXED DISCHARGE INFORMATION TO [facility] AT [phone]. NURSE REPORT TO BE CALLED TO [facility] AT [phone],[facility] TO ARRANGE VAN TRANSPORTATION. Titus Banda, CASE MANAGEMENT
[2016-08-24 11:13] VITALS: BP 109/57
--- NOTE | 2016-08-24 13:15 | NUR ---
ALERT AND ORIENTED X4. SITTING UP IN CHAIR. BROTHER AT BEDSIDE. DC LT HAND IV TIP INTACT. DISCHARGE PAPERS SIGNED ON CHART. TRANSPORT VAN SCHEDULED FOR WAISTLINE JOINER AT 1400. REPORT CALLED TO MIKHAIL FERNANDEZ AT [facility]. CONTINUE PLAN OF CARE AND SAFETY PRECAUTIONS.
--- NOTE | 2016-08-24 14:10 | NUR ---
UP AMBULATING WITH PT ASSIST.
--- NOTE | 2016-08-24 14:25 | NUR ---
LEAVING TO OK BY BRITTANY. ESCORTED BY W/C.
== END 2016-08-24 14:27 | DRG 602 ==
LOC: D.SDCHOLD 12:16 → D.M2 12:16 → D.CVICU 12:16 → D.M2 13:46 → D.CVICU 17:43 → D.M2 08-07 17:12
PROVIDERS: Family Medicine; Internal Medicine Nephrology; Internal Medicine Pulmonary Disease; Radiology Diagnostic Radiology; ADMIT Orthopaedic Surgery
PROC: 0T9B70Z Drainage of Bladder with Drainage Device, Via Natural or Artificial Opening (ICD-10-PCS; 2016-08-02)
PROC: B41G1ZZ Fluoroscopy of Left Lower Extremity Arteries using Low Osmolar Contrast (ICD-10-PCS; 2016-08-02)
PROC: 3E05317 Introduction of Other Thrombolytic into Peripheral Artery, Percutaneous Approach (ICD-10-PCS; principal; 2016-08-02 16:00)
DX: L03.116 Cellulitis of left lower limb (principal); I50.23 Acute on chronic systolic (congestive) heart failure; J18.9 Pneumonia, unspecified organism; J96.21 Acute and chronic respiratory failure with hypoxia; G93.41 Metabolic encephalopathy; I26.99 Other pulmonary embolism without acute cor pulmonale; I70.92 Chronic total occlusion of artery of the extremities; I13.0 Hypertensive heart and chronic kidney disease with heart failure and stage 1 through stage 4 chronic kidney disease, or unspecified chronic kidney disease; J44.0 Chronic obstructive pulmonary disease with (acute) lower respiratory infection; J44.1 Chronic obstructive pulmonary disease with (acute) exacerbation; I42.9 Cardiomyopathy, unspecified; I25.10 Atherosclerotic heart disease of native coronary artery without angina pectoris; E11.22 Type 2 diabetes mellitus with diabetic chronic kidney disease; N18.3 Chronic kidney disease, stage 3 (moderate); Z79.4 Long term (current) use of insulin; E11.40 Type 2 diabetes mellitus with diabetic neuropathy, unspecified; N40.0 Benign prostatic hyperplasia without lower urinary tract symptoms; I48.91 Unspecified atrial fibrillation; D64.9 Anemia, unspecified; G47.33 Obstructive sleep apnea (adult) (pediatric); E87.6 Hypokalemia; I34.0 Nonrheumatic mitral (valve) insufficiency; Z89.611 Acquired absence of right leg above knee; Z72.0 Tobacco use; I27.2 Other secondary pulmonary hypertension